=== PATIENT | male | born 1945 | race American Indian/Alaskan Native ===

== ENCOUNTER 2016-12-24 03:29 | Inpatient (IN) | payer MEDICARE, OTHER ==
[2016-12-24 03:30] VITALS: BMI 23.8
--- NOTE | 2016-12-24 03:31 | C.PDOC ---
History Of Present Illness Patient presents to the ER with a complaint of SOB worsening since Friday. Patient reports having mild chest pain yesterday that resolved itself and notes he quit smoking in October. Patient is speaking in complete sentences; denies fever , chills, nausea, or vomiting. Time Seen by Provider: 12/24/16 03:31 Chief Complaint (Nursing): Shortness Of Breath History Per: Patient History/Exam Limitations: no limitations Onset/Duration Of Symptoms: Days Current Symptoms Are (Timing): Still Present Initiating Event: Other (Not known) Current Respiratory Medications: None Severity: Moderate Pain Scale Rating Of: 4 Associated Symptoms: denies: Fever, Chills Recent travel outside of the [place]: No Past Medical History Reviewed: Historical Data, Nursing Documentation, Vital Signs Vital Signs: Last Vital Signs Temp 99.5 F 12/24/16 03:38 Pulse 96 H 12/24/16 04:40 Resp 20 12/24/16 04:40 BP 95/62 L 12/24/16 04:40 Pulse Ox 100 12/24/16 04:40 - Medical History PMH: Asthma (as per pt), COPD, Diabetes, HTN, Hypercholesterolemia, Hyperlipidemia Surgical History: Cholecystectomy, Hernia Repair - [facility] Procedures ASSISTANCE WITH RESPIRATORY VENTILATION, 24-96 HRS, CPAP (11/07/16) DRAINAGE OF RIGHT PLEURAL CAVITY, PERCUTANEOUS APPROACH (11/07/16) Family History: States: No Known Family Hx - Social History Hx Alcohol Use: No Hx Substance Use: No - Immunization History Hx Influenza Vaccination: Yes Review Of Systems Constitutional: Negative for: Fever, Chills Cardiovascular: Negative for: Chest Pain Respiratory: Positive for: Shortness of Breath Gastrointestinal: Negative for: Nausea, Vomiting Physical Exam - Physical Exam Appears: Non-toxic Skin: Warm, Dry Oral Mucosa: Moist Chest: Symmetrical, No Tenderness Cardiovascular: Rhythm Regular, No Murmur Respiratory: Decreased Breath Sounds, No Rales, Rhonchi (Diffuse), No Wheezing Gastrointestinal/Abdominal: Soft, No Tenderness Neurological/Psych: Oriented x3 ED Course And Treatment - Laboratory Results Result Diagrams: 12/24/16 03:50 12/24/16 03:50 ECG: Interpreted By Me, Viewed By Me ECG Rhythm: Sinus Rhythm (91), Nonspecific Changes O2 Sat by Pulse Oximetry: 96 Pulse Ox Interpretation: Normal - Radiology CXR: Interpreted by Me, Viewed By Me CXR Interpretation: Yes: Other (fibrotic changes, no effusion). No: Infiltrates , Fracture, Pnemothorax Progress Note: EKG, blood work, and urinalysis ordered. Ecotrin, solumedrol, and nebulizer treatment administered. Disposition Discussed With DrLena: Scottie Perrin Comment: accepted the pt on his service and took over the care at 6:10AM Counseled Patient/Family Regarding: Studies Performed, Diagnosis - Disposition Disposition: HOSPITALIZED Disposition Time: 03:31 Condition: FAIR Forms: [email or web address] (Tajik) - POA Present On Arrival: Poor Glycemic Control - Clinical Impression Clinical Impression: Dyspnea, COPD (chronic obstructive pulmonary disease), CHF (congestive heart failure) - Scribe Statement The provider has reviewed the documentation as recorded by the Scribe Chandler Juarez All medical record entries made by the Scribe were at my direction and personally dictated by me. I have reviewed the chart and agree that the record accurately reflects my personal performance of the history, physical exam, medical decision making, and the department course for this patient. I have also personally directed, reviewed, and agree with the discharge instructions and disposition. Decision To Admit - Pt Status Changed To: Hospital Disposition Of: Inpatient - Admit Certification Admit to Inpatient:: After my assessment, the patient will require hospitalization for at least two midnights. This is because of the severity of symptoms shown, intensity of services needed, and/or the medical risk in this patient being treated as an outpatient. - InPatient: Physician Admission Certification: I certify that this patient requires 2 or more midnights of care for the following reason:: After my assessment, the patient will require hospitalization for at least two midnights. This is because of the severity of symptoms shown, intensity of services needed, and/or the medical risk in this patient being treated as an outpatient. - . Bed Request Type: Telemetry Admitting Physician: Scottie Perrin Patient Diagnosis: Dyspnea, COPD (chronic obstructive pulmonary disease), CHF (congestive heart failure)
[2016-12-24] MEDS ORDERED: Aspirin 325 mg EC Tablets PO STA (03:36)
[2016-12-24] MEDS: Albuterol-Ipratrop 3 mg / 0.5 (3 ml) UD IH SCH ×3 (03:46→04:21)
[2016-12-24] MEDS ORDERED: Albuterol-Ipratrop 3 mg / 0.5 (3 ml) UD ONE (03:49)
[2016-12-24 03:55] LABS: BASO % 0.2 % (0.0-2.0); HEMATOCRIT 40.9 % (35.0-51.0); LYMPH # 0.8 K/uL (1.0-4.3); LYMPH % 8.4 % (20.0-40.0); MEAN CELL VOLUME 92.3 fL (80.0-94.0); MEAN CORPUSCULAR HEMOGLOBIN 30.7 pg (27.0-31.0); MEAN CORPUSCULAR HGB CONC 33.3 g/dL (33.0-37.0); MEAN PLATELET VOLUME 7.9 fL (7.2-11.7); MONO # 2.1 K/uL (0.0-0.8); MONO % 22.5 % (0.0-10.0); PLATELET COUNT 195 K/uL (130-400); RED CELL DISTRIBUTION WIDTH 14.8 % (11.5-14.5); WHITE BLOOD COUNT 9.2 K/uL (4.8-10.8)
[2016-12-24 03:56] LABS: CHLORIDE 94 mmol/L (98-107); POTASSIUM 4.3 mmol/L (3.6-5.2); SODIUM 136 mmol/L (132-148)
[2016-12-24 03:58] LABS: AST/SGOT 39 U/L (17-59); BILIRUBIN,TOTAL 1.3 mg/dL (0.2-1.3); CARBON DIOXIDE 28 mmol/L (22-30); GFR AFRICAN-AMERICAN > 60; TOTAL PROTEIN 7.4 g/dL (6.3-8.3)
[2016-12-24 03:59] LABS: ALKALINE PHOSPHATASE 88 U/L (38-126); ALT/SGPT 29 U/L (21-72); BLOOD UREA NITROGEN 13 mg/dL (9-20); CALCIUM 9.1 mg/dl (8.6-10.4); GLUCOSE,RANDOM 140 mg/dL (75-110)
[2016-12-24 04:02] LABS: ABG ALLEN TEST POS; DRAW SITE L RAD
[2016-12-24 04:56] LABS: NEUTROPHIL 50 % (50-75); TOTAL CELLS COUNTED 100
[2016-12-24] MEDS ORDERED: Piperacillin/Tazobact 3.375 gm 100 ML IVPB STA (05:23)
[2016-12-24 05:42] LABS: RBC URINE < 1 /hpf (0-3); URINE BILIRUBIN NEGATIVE (NEGATIVE); URINE BLOOD NEGATIVE (NEGATIVE); URINE COLOR Yellow (YELLOW); URINE GLUCOSE (UA) NORMAL (Normal); URINE KETONE NEGATIVE (NEGATIVE); URINE LEUKOCYTE ESTERASE NEG Leu/uL (Negative); URINE PROTEIN NEGATIVE (NEGATIVE); WBC URINE 1 /hpf (0-5)
--- NOTE | 2016-12-24 08:38 | CP.PCM.HP ---
<José Luis Mae - Last Filed: 12/24/16 09:17> History of Present Illness - History of Present Illness History of Present Illness: cc: "short of breath" HPI: Patient is a 71 year old male with PMHx of hypertension, NIDDM, hyperlipidemia, severe pulmonary hypertension, right sided heart failure, hx of pericardial effusion, hx of pleural effusions, CML, COPD, presenting to the hospital complaining of shortness of breath. Patient reports that he started feeling short of breath on evening. He said he was tossing and turning because he was unable to get comfortable due to the shortness of breath. He states that the dyspnea got progressively worse until yesterday, when he came in. He says that at baseline, he is unable to lay down flat and unable to walk more than 2 blocks without get short of breath. He says he has had a productive cough with sputum of various colors, for the past 1.5 weeks. He denies any fevers, chills, chest pain, palpitations. Patient was recently admitted to [facility] on 11/07/16 for dyspnea, secondary to COPD vs CHF exacerbation. PMD: Dr. Calix PMHx: As stated above PSHx: Inguinal hernia repair, cholecystectomy, thoracentesis (11/12/16) Allergies: Shellfish Fam hx: Father and 2 brothers had strokes Social hx: quit smoking on 11/07/16, previously smoked 1ppd for about 40 years. Quit drinking about 15 years ago, drank about 2 pints per day for over 35-40 years. Denies any illicit drug use. Worked previously at a [employer]. Lives alone. Has a brother and nieces/nephews that live near by. No advance directive Meds- Please see Assessment and Plan Present on Admission - Present on Admission Any Indicators Present on Admission: No Review of Systems - Constitutional Constitutional: absent: Anorexia, Chills, Daytime Sleepiness, Weakness - EENT Eyes: absent: Change in Vision Nose/Mouth/Throat: absent: Nasal Congestion, Nasal Discharge - Cardiovascular Cardiovascular: absent: Chest Pain, Irregular Heart Rhythm, Leg Edema, Palpitations, Pedal Edema - Respiratory Respiratory: Cough, Dyspnea, Dyspnea on Exertion, Change in Mucous Color. absent: Hemoptysis, Wheezing - Gastrointestinal Gastrointestinal: absent: Abdominal Pain, Constipation, Diarrhea, Heartburn, Vomiting - Genitourinary Genitourinary: absent: Difficulty Urinating, Dysuria - Musculoskeletal Musculoskeletal: absent: Back Pain, Myalgias, Numbness - Integumentary Integumentary: absent: Skin Ulcer, Sores, Striae, Wounds, Jaundice - Neurological Neurological: absent: Abnormal Movements, Tingling, Tremor, Weakness - Psychiatric Psychiatric: absent: Anxiety, Panic Attacks, Suicidal Ideation - Endocrine Endocrine: absent: Fatigue, Palpitations Past Patient History - Infectious Disease Hx of Infectious Diseases: None - Past Social History Smoking Status: Former Smoker Chewing Tobacco Use: No Cigar Use: No Alcohol: Other (former heavy alcohol use) Drugs: Denies Home Situation {Lives}: Alone - CARDIAC Hx Hypercholesterolemia: Yes Hx Hypertension: Yes - PULMONARY Hx Asthma: Yes (as per pt) Hx Chronic Obstructive Pulmonary Disease (COPD): Yes - NEUROLOGICAL Hx Neurological Disorder: No - HEENT Hx HEENT Problems: No - RENAL Hx Chronic Kidney Disease: No - ENDOCRINE/METABOLIC Hx Endocrine Disorders: Yes Hx Diabetes Mellitus Type 2: Yes - HEMATOLOGICAL/ONCOLOGICAL Hx Blood Disorders: Yes Hx Leukemia: Yes - MUSCULOSKELETAL/RHEUMATOLOGICAL Hx Falls: No - PSYCHIATRIC Hx Substance Use: No - SURGICAL HISTORY Hx Cholecystectomy: Yes - ANESTHESIA Hx Anesthesia: Yes Hx Anesthesia Reactions: No Meds Allergies/Adverse Reactions: Allergies Allergy/AdvReac Type Severity Reaction Status Date / Time No Known Allergies Allergy Verified 12/24/16 03:43 Physical Exam - Constitutional Appears: Non-toxic, No Acute Distress - Head Exam Head Exam: ATRAUMATIC, NORMAL INSPECTION, NORMOCEPHALIC - Eye Exam Pupil Exam: NORMAL ACCOMODATION, PERRL - ENT Exam ENT Exam: Mucous Membranes Moist - Respiratory Exam Respiratory Exam: Decreased Breath Sounds, Rales (bibasilar). absent: Rhonchi, Wheezes - Cardiovascular Exam Cardiovascular Exam: REGULAR RHYTHM, +S1, +S2 - GI/Abdominal Exam GI & Abdominal Exam: Normal Bowel Sounds, Soft. absent: Distended, Firm, Hernia , Hyperactive Bowel Sounds, Tenderness - Extremities Exam Extremities exam: Positive for: normal capillary refill, pedal pulses present - Neurological Exam Neurological exam: Alert, Oriented x3 - Psychiatric Exam Psychiatric exam: Normal Affect, Normal Mood - Skin Skin Exam: Dry, Intact, Normal Color, Warm Results - Vital Signs Recent Vital Signs: Last Vital Signs Temp 98.3 F 12/24/16 07:00 Pulse 88 12/24/16 07:05 Resp 20 12/24/16 07:00 BP 130/65 12/24/16 07:00 Pulse Ox 91 L 12/24/16 07:00 - Labs Result Diagrams: 12/24/16 03:50 12/24/16 03:50 Assessment & Plan (1) Dyspnea Status: Acute Comment: Likely secondary to severe pulmonary hypertension vs COPD/ Bronchiectasos exacerbation vs Right sided heart failure vs pneumonia. CXR- 12/24- Biapical pleural thickening with upper lobe granulomatous changes. Prominent diffuse increased interstitial lung markings bilaterally. Prominent consolidative changes in the mid to lower lung zones bilateral with reticulation at the level of diaphragms. Suggestion of trace bilateral pleural effusions. Right hilar prominence. f/u CT Chest Abdomen Pelvis with IV and PO Contrast. - Despite shellfish allergy, patient reported tolerating CT Angio from 10/28/16 with no problem. - If CT reveals pneumonia, will add antibiotics for HCAP. Consult Cardio- Dr. Oneill. Consult Pulm- Dr. Castillo. Lasix 40mg IVP Daily. Duoneb Q6h PRN for dyspnea/wheezing. Spiriva 18mcg INH Q24h. Singulair 10mg PO qHS. Advair 250/50 1 puff INH Q12h (2) History of diastolic dysfunction Status: Acute Comment: Consult Cardio- Dr. Oneill. ProBNP was 1570 on 11/07/16- currently 1280. Lasix 40mg IVP Daily. Cozaar 50mg PO Daily (3) Pericardial effusion Status: Acute Comment: Consult Cardio- Dr. Oneill. Echo from 11/07/16- LVEF 74%, LV systolic function normal, RV mild to mdoerately dilated. Grade I abnormal relaxation pattern. Mild to moderate tricuspid regurgitation. Severe Pulmonary hpyertension. Small- moderate circumferential pericardial effusion. No evidence of cardiac tamponade. (4) Pleural effusion Status: Acute Comment: CXR- 12/24/16- Biapical pleural thickening with upper lobe granulomatous changes. Prominent diffuse increased interstitial lung markings bilaterally. Prominent consolidative changes in the mid to lower lung zones bilateral with reticulation at the level of diaphragms. Suggestion of trace bilateral pleural effusions. Right hilar prominence. f/u CT Chest, Abdomen, Pelvis w IV and PO Contrast today. Pending cytology from thoracentesis on 11/12/16 (5) CML (chronic myelocytic leukemia) Status: Chronic Comment: consult [facility]- Dr. Navarro. Was previously on Dusatinib per documentation but was held due to history of pleural effusions (6) Diabetes Status: Chronic Comment: Hgb A1C on 11/07/16- 6.3. Continue Glimepiride 1mg PO Daily. RISS ACHS. Accucheck ACHS. Heart Healthy, Mod CHO diet (7) HTN (hypertension) Status: Chronic Comment: Cozaar 50mg PO Daily. Cardizem 120mg PO Daily (8) Hyperlipidemia Status: Acute Comment: Crestor 5mg PO HS (9) Mass of upper lobe of right lung Status: Acute Comment: CT Chest from 11/11/16 shows right upper lobe nodule. f/u CT Chest Abdomen Pelvis w PO and IV Contrast. Patient will require followup CT Chest in October 2017 (10) Prophylactic measure Status: Acute Comment: DVT Risk score of 5- ++2 due to age, +2 due to hx of CML< +1 due to COPD. Lovenox 40mg SC Daily. Protonix 40mg PO Daily <Espinoza Tatum - Last Filed: 12/24/16 22:08> Results - Vital Signs Recent Vital Signs: Last Vital Signs Temp 97.6 F 12/24/16 15:06 Pulse 70 12/24/16 15:06 Resp 20 12/24/16 15:06 BP 125/52 L 12/24/16 15:06 Pulse Ox 98 12/24/16 15:06 - Labs Result Diagrams: 12/24/16 03:50 12/24/16 03:50 Labs: Laboratory Results - last 24 hr 12/24/16 12/24/16 12/24/16 11:33 15:59 21:29 POC Glucose (mg/dL) 312 H 153 H 132 H Attending/Attestation - Attestation I have personally seen and examined this patient.: Yes I have fully participated in the care of the patient.: Yes I have reviewed all pertinent clinical information: Yes Notes (Text): 12/24/16 22:07 Patient was seen and examined shortly after resident on 12/24/16. History, Exam, Assessment and Plan were thoroughly gone over with the resident. Espinoza Tatum D.O.
--- NOTE | 2016-12-24 08:42 | RAD ---
PROCEDURE: CHEST RADIOGRAPH, 1 VIEW HISTORY: Shortness of breath COMPARISON: 11/07/2016 FINDINGS: LUNGS: Biapical pleural thickening with upper lobe granulomatous changes. Prominent diffuse increased interstitial lung markings bilaterally. Prominent consolidative changes in the mid to lower lung zones bilaterally with reticulation at the level of the diaphragms. Suggestion of trace bilateral pleural effusions. Right hilar prominence. PLEURA: As above. CARDIOVASCULAR: Mild cardiomegaly. OSSEOUS STRUCTURES: No significant abnormalities. VISUALIZED UPPER ABDOMEN: Normal. OTHER FINDINGS: None. IMPRESSION: Biapical pleural thickening with upper lobe granulomatous changes. Prominent diffuse increased interstitial lung markings bilaterally. Prominent consolidative changes in the mid to lower lung zones bilaterally with reticulation at the level of the diaphragms. Suggestion of trace bilateral pleural effusions. Right hilar prominence.
[2016-12-24] MEDS ORDERED: Iohexol 240 (50 ml) PO ONE (09:30)
[2016-12-24] MEDS: Enoxaparin 40 mg Syringe SC SCH (10:21)
[2016-12-24] MEDS: Pantoprazole 40 mg EC Tab PO SCH (10:21)
[2016-12-24] MEDS: diltiaZEM 120 mg/24 Hours CD Cap PO SCH (10:22)
[2016-12-24] MEDS ORDERED: Iodixanol 320 MG/ML 100 ML BOTTLE IV ONE (11:03)
[2016-12-24] MEDS: Albuterol-Ipratrop 3 mg / 0.5 (3 ml) UD INH PRN (11:39)
[2016-12-24] MEDS: (Novolog) Insulin Aspart, Recombinant 100 u/ml 10 ml vial SC SCH ×3 (13:36→22:00)
--- NOTE | 2016-12-24 16:34 | CT ---
CT chest, abdomen, and pelvis with IV contrast Indication: History CML, Currently with Abdominal Pain RUQ/RLQ Technique: Contiguous axial images of the chest, abdomen, and pelvis. Coronal and Sagittal reformats generated and reviewed. This CT exam was performed using 1 or more of the following dose reduction techniques: Automated exposure control, adjustment of the MAA and/or kV according to patient size, and/or use of iterative reconstruction technique. Oral contrast was administered. 100 mL Visipaque. Radiation dose: Total exam DLP = 483.38 MGy-cm. Comparison: CTA chest performed 11/11/16 Findings: Visualized portions of the inferior thyroid gland appear unremarkable. The mediastinal and hilar vascular structures appear within normal limits. The heart appears within normal limits of size. Small pericardial effusion. 13 mm pretracheal lymph node, nonspecific. Extensive bilateral lower lobe, right middle lobe, and lingular cylindrical bronchiectasis . Small right greater than left pleural effusions. Scattered tree-in-bud like opacities. 3 mm left lower lobe pulmonary nodule (series 4, image 110). Stable 3 mm right upper lobe pulmonary nodule. Hypoattenuation of the liver compatible with hepatic steatosis. Bilateral adrenal gland hypertrophy. Cholecystectomy. The spleen, kidneys, and pancreas appear unremarkable. The stomach is nondistended. The bowel loops appear within normal limits of caliber without evidence of intestinal obstruction. There is no definite free air. Moderate constipation. Diverticulosis without CT evidence of acute diverticulitis. The prostate gland measures approximately 2.6 x 4.1 cm and contains coarse calcifications. Partially imaged right hydrocele. 15 mm low-density right testicular focus, possibly partially imaged hydrocele. The urinary bladder appears unremarkable. Bilateral sub cm inguinal adenopathy. Bilateral gynecomastia. No acute osseous abnormality is detected. Impression: Small pericardial effusion. Extensive bilateral lower lobe, right middle lobe, and lingular cylindrical bronchiectasis . Small right greater than left pleural effusions. Scattered tree-in-bud like opacities. 3 mm left lower lobe pulmonary nodule. Stable 3 mm right upper lobe pulmonary nodule. In the absence of risk factors for lung cancer, no specific imaging follow-up is required. If the patient is a smoker or has other risk factors, follow-up CT at 12 months is recommended to document stability. Hepatic steatosis. Bilateral adrenal gland hypertrophy. Cholecystectomy. Diverticulosis without CT evidence of acute diverticulitis. Moderate constipation. 13 mm pretracheal lymph node, nonspecific. Bilateral sub cm inguinal adenopathy. 15 mm low-density right testicular focus, possibly partially imaged hydrocele. Suggest further evaluation with testicular ultrasound if indicated. Bilateral gynecomastia.
--- NOTE | 2016-12-24 16:35 | CP.PCM.CON ---
History of Present Illness - History of Present Illness History of Present Illness: Reason for consult: COPD/consolidations/dyspnea The patient is a 71 year old male who presented to emergency department early this morning for progressively worsening shortness of breath and productive cough for the last 1.5 weeks. Patient seen and examined bedside. He was laying flat in bed comfortably. He reports that his shortness of breath has improved since admission. Still reports a productive cough with green sputum. Patient denied chest pain, palpitations, f/c, and n/v/d/c. PMhx: HTN, HLD, Pulm HTN, CML, COPD, NIDDM, Right sided heart failure, pericardial effusion, pleural effusions Surg Hx: Inguinal hernia repair, cholecystectomy, thoracentesis (11/12/16) Social Hx: 1ppd x 40 years (quit smoking in October 2016), history of ETOH use (2 pints/day x 35 years, quit 15 years ago), denied drug use Family HX: dad and two brothers had CVA Allergies: shellfis CXR (12/24/16): Biapical pleural thickening with upper lobe granulomatous changes. Trace bilateral pleural effusions. Prominent consolidative changes in mid to lower lung zones bilaterally. Right hilar prominence. Review of Systems - Review of Systems All systems: reviewed and no additional remarkable complaints except (Shortness of breath and cough) Past Patient History - Infectious Disease Hx of Infectious Diseases: None - Past Medical History & Family History Past Medical History?: Yes - Past Social History Smoking Status: Light Smoker < 10 Cigarettes Daily - CARDIAC Hx Cardiac Disorders: Yes Hx Hypercholesterolemia: Yes Hx Hypertension: Yes - PULMONARY Hx Respiratory Disorders: Yes Hx Asthma: Yes (as per pt) Hx Chronic Obstructive Pulmonary Disease (COPD): Yes - NEUROLOGICAL Hx Neurological Disorder: No - HEENT Hx HEENT Problems: No - RENAL Hx Chronic Kidney Disease: No - ENDOCRINE/METABOLIC Hx Endocrine Disorders: Yes Hx Diabetes Mellitus Type 2: Yes - HEMATOLOGICAL/ONCOLOGICAL Hx Blood Disorders: Yes Hx Leukemia: Yes - INTEGUMENTARY Hx Dermatological Problems: No - MUSCULOSKELETAL/RHEUMATOLOGICAL Hx Musculoskeletal Disorders: No Hx Falls: No - GASTROINTESTINAL Hx Gastrointestinal Disorders: No - GENITOURINARY/GYNECOLOGICAL Hx Genitourinary Disorders: No - PSYCHIATRIC Hx Psychophysiologic Disorder: No Hx Substance Use: No - SURGICAL HISTORY Hx Surgeries: Yes Hx Cholecystectomy: Yes - ANESTHESIA Hx Anesthesia: Yes Hx Anesthesia Reactions: No Meds Allergies/Adverse Reactions: Allergies Allergy/AdvReac Type Severity Reaction Status Date / Time No Known Allergies Allergy Verified 12/24/16 03:43 - Medications Medications: Current Medications Albuterol/Ipratropium (Duoneb 3 Mg/0.5 Mg (3 Ml) Ud) 3 ml INH RQ6 PRN PRN Reason: Shortness of Breath Last Admin: 12/24/16 11:39 Dose: 3 ml Diltiazem HCl (Cardizem Cd) 120 mg PO DAILY [facility] Last Admin: 12/24/16 10:22 Dose: 120 mg Enoxaparin Sodium (Lovenox) 40 mg SC DAILY [facility] Last Admin: 12/24/16 10:21 Dose: 40 mg Furosemide (Lasix) 40 mg IVP DAILY [facility] Last Admin: 12/24/16 10:22 Dose: 40 mg Glimepiride (Amaryl) 1 mg PO DAILY [facility] Last Admin: 12/24/16 11:08 Dose: 1 mg Insulin Aspart (Novolog) 0 unit SC [facility] PRN Reason: Protocol Last Admin: 12/24/16 13:36 Dose: 4 unit Losartan Potassium (Cozaar) 50 mg PO DAILY [facility] Last Admin: 12/24/16 10:24 Dose: 50 mg Montelukast Sodium (Singulair) 10 mg PO HS [facility] Pantoprazole Sodium (Protonix Ec Tab) 40 mg PO DAILY [facility] Last Admin: 12/24/16 10:21 Dose: 40 mg Rosuvastatin Calcium (Crestor) 5 mg PO HS [facility] Fluticasone/Salmeterol (Advair Diskus 250/50) 1 puff INH RQ12 [facility] Tiotropium [place] (Spiriva) 18 mcg INH RQ24 [facility] Physical Exam - Head Exam Head Exam: ATRAUMATIC, NORMOCEPHALIC - Eye Exam Eye Exam: Normal appearance - ENT Exam ENT Exam: Mucous Membranes Moist - Neck Exam Neck exam: Positive for: Normal Inspection - Respiratory Exam Respiratory Exam: Rales - Cardiovascular Exam Cardiovascular Exam: REGULAR RHYTHM - GI/Abdominal Exam GI & Abdominal Exam: Normal Bowel Sounds, Soft Results - Vital Signs Recent Vital Signs: Last Vital Signs Temp 98.1 F 12/24/16 07:00 Pulse 88 12/24/16 09:01 Resp 18 12/24/16 11:39 BP 152/71 H 12/24/16 10:22 Pulse Ox 97 08/08/17 11:39 - Labs Result Diagrams: 12/24/16 03:50 12/24/16 03:50 Labs: Laboratory Results - last 24 hr 12/24/16 11:33 POC Glucose (mg/dL) 312 H Assessment & Plan (1) COPD (chronic obstructive pulmonary disease) Status: Acute Comment: CAT scan of the chest consistent with extensive bronchiectasis. Start IV antibiotics. IV steroids and nebulizer treatment (2) CHF (congestive heart failure) Status: Acute (3) Pulmonary hypertension Status: Acute
--- NOTE | 2016-12-24 17:31 | CP.PCM.CON ---
<RiveraJhony - Last Filed: 12/24/16 17:19> History of Present Illness - History of Present Illness History of Present Illness: PGY3 on heme/onc Dr. Navarro service: 71 year old male with PMHx of hypertension, NIDDM, hyperlipidemia, severe pulmonary hypertension, right sided heart failure, hx of pericardial effusion, hx of pleural effusions, CML, COPD, presenting to the hospital complaining of shortness of breath. Patient reports that he started feeling short of breath on evening. Patient was recently admitted to [facility] on 11/07/16 for dyspnea, secondary to COPD vs CHF exacerbation. Patient was told to stop Dusatinib due to possible side effect of pericardial effusion. Patient did not take the medication since previous admission as instructed. Patient currently said his breathing is improved after treatments. PMD: Dr. Calix PMHx: As stated above PSHx: Inguinal hernia repair, cholecystectomy, thoracentesis (11/12/16) Allergies: Shellfish Fam hx: Father and 2 brothers had strokes Social hx: quit smoking on 11/07/16, previously smoked 1ppd for about 40 years. Quit drinking about 15 years ago, drank about 2 pints per day for over 35-40 years. Denies any illicit drug use. Worked previously at a [employer]. Lives alone. Has a brother and nieces/nephews that live near by. No advance directive Review of Systems - Constitutional Constitutional: Weakness - EENT Ears: absent: Decreased Hearing - Cardiovascular Cardiovascular: Dyspnea, Dyspnea on Exertion, Edema. absent: Chest Pain - Respiratory Respiratory: Dyspnea, Wheezing. absent: Cough - Gastrointestinal Gastrointestinal: absent: Abdominal Pain - Musculoskeletal Musculoskeletal: absent: Tingling - Integumentary Integumentary: absent: Dry Skin - Neurological Neurological: absent: Abnormal Movements Past Patient History - Infectious Disease Hx of Infectious Diseases: None - Past Medical History & Family History Past Medical History?: Yes - Past Social History Smoking Status: Light Smoker < 10 Cigarettes Daily - CARDIAC Hx Cardiac Disorders: Yes Hx Hypercholesterolemia: Yes Hx Hypertension: Yes - PULMONARY Hx Respiratory Disorders: Yes Hx Asthma: Yes (as per pt) Hx Chronic Obstructive Pulmonary Disease (COPD): Yes - NEUROLOGICAL Hx Neurological Disorder: No - HEENT Hx HEENT Problems: No - RENAL Hx Chronic Kidney Disease: No - ENDOCRINE/METABOLIC Hx Endocrine Disorders: Yes Hx Diabetes Mellitus Type 2: Yes - HEMATOLOGICAL/ONCOLOGICAL Hx Blood Disorders: Yes Hx Leukemia: Yes - INTEGUMENTARY Hx Dermatological Problems: No - MUSCULOSKELETAL/RHEUMATOLOGICAL Hx Musculoskeletal Disorders: No Hx Falls: No - GASTROINTESTINAL Hx Gastrointestinal Disorders: No - GENITOURINARY/GYNECOLOGICAL Hx Genitourinary Disorders: No - PSYCHIATRIC Hx Psychophysiologic Disorder: No Hx Substance Use: No - SURGICAL HISTORY Hx Surgeries: Yes Hx Cholecystectomy: Yes - ANESTHESIA Hx Anesthesia: Yes Hx Anesthesia Reactions: No Meds Allergies/Adverse Reactions: Allergies Allergy/AdvReac Type Severity Reaction Status Date / Time No Known Allergies Allergy Verified 12/24/16 03:43 - Medications Medications: Current Medications Albuterol/Ipratropium (Duoneb 3 Mg/0.5 Mg (3 Ml) Ud) 3 ml INH RQ6 PRN PRN Reason: Shortness of Breath Last Admin: 12/24/16 11:39 Dose: 3 ml Budesonide (Pulmicort Respules) 0.5 mg INH RQ12 [facility] Diltiazem HCl (Cardizem Cd) 120 mg PO DAILY [facility] Last Admin: 12/24/16 10:22 Dose: 120 mg Enoxaparin Sodium (Lovenox) 40 mg SC DAILY [facility] Last Admin: 12/24/16 10:21 Dose: 40 mg Furosemide (Lasix) 40 mg IVP DAILY [facility] Last Admin: 12/24/16 10:22 Dose: 40 mg Glimepiride (Amaryl) 1 mg PO DAILY [facility] Last Admin: 12/24/16 11:08 Dose: 1 mg Cefepime HCl (Maxipime Iv 1 Gm Premix) 1 gm in 50 mls @ 100 mls/hr IVPB Q12H [facility] Insulin Aspart (Novolog) 0 unit SC ACHS [facility] PRN Reason: Protocol Last Admin: 12/24/16 13:36 Dose: 4 unit Losartan Potassium (Cozaar) 50 mg PO DAILY [facility] Last Admin: 12/24/16 10:24 Dose: 50 mg Methylprednisolone (Solu-Medrol) 40 mg IV Q12 [facility] Montelukast Sodium (Singulair) 10 mg PO HS [facility] Pantoprazole Sodium (Protonix Ec Tab) 40 mg PO DAILY [facility] Last Admin: 12/24/16 10:21 Dose: 40 mg Rosuvastatin Calcium (Crestor) 5 mg PO HS [facility] Tiotropium [place] (Spiriva) 18 mcg INH RQ24 [facility] Physical Exam - Constitutional Appears: Non-toxic, No Acute Distress, Chronically Ill - Head Exam Head Exam: ATRAUMATIC - Eye Exam Eye Exam: Normal appearance - ENT Exam ENT Exam: Mucous Membranes Moist - Respiratory Exam Respiratory Exam: Decreased Breath Sounds, Rales, Rhonchi, NORMAL BREATHING PATTERN. absent: Wheezes - Cardiovascular Exam Cardiovascular Exam: REGULAR RHYTHM, +S1, +S2. absent: Gallop, Rubs - GI/Abdominal Exam GI & Abdominal Exam: Normal Bowel Sounds, Soft. absent: Tenderness - Extremities Exam Extremities exam: Negative for: pedal edema - Neurological Exam Neurological exam: Alert, Oriented x3 - Psychiatric Exam Psychiatric exam: Normal Mood - Skin Skin Exam: Intact Results - Vital Signs Recent Vital Signs: Last Vital Signs Temp 98.1 F 12/24/16 07:00 Pulse 88 12/24/16 09:01 Resp 18 12/24/16 11:39 BP 152/71 H 12/24/16 10:22 Pulse Ox 97 12/24/16 11:39 - Labs Result Diagrams: 12/24/16 03:50 12/24/16 03:50 Labs: Laboratory Results - last 24 hr 12/24/16 12/24/16 11:33 15:59 POC Glucose (mg/dL) 312 H 153 H Assessment & Plan - Assessment and Plan (Free Text) Assessment: CML Hold Dusatinib. Outpatient follow up. Anemia Mild. No intervention at this point. SOB Management as per Dr. Castillo. <Aj Navarro - Last Filed: 12/24/16 19:17> Meds - Medications Medications: Current Medications Albuterol/Ipratropium (Duoneb 3 Mg/0.5 Mg (3 Ml) Ud) 3 ml INH RQ6 PRN PRN Reason: Shortness of Breath Last Admin: 12/24/16 11:39 Dose: 3 ml Budesonide (Pulmicort Respules) 0.5 mg INH RQ12 [facility] Diltiazem HCl (Cardizem Cd) 120 mg PO DAILY [facility] Last Admin: 12/24/16 10:22 Dose: 120 mg Enoxaparin Sodium (Lovenox) 40 mg SC DAILY [facility] Last Admin: 12/24/16 10:21 Dose: 40 mg Furosemide (Lasix) 40 mg IVP DAILY [facility] Last Admin: 12/24/16 10:22 Dose: 40 mg Glimepiride (Amaryl) 1 mg PO DAILY [facility] Last Admin: 12/24/16 11:08 Dose: 1 mg Cefepime HCl (Maxipime Iv 1 Gm Premix) 1 gm in 50 mls @ 100 mls/hr IVPB Q12H [facility] Insulin Aspart (Novolog) 0 unit SC ACHS [facility] PRN Reason: Protocol Last Admin: 12/24/16 13:36 Dose: 4 unit Losartan Potassium (Cozaar) 50 mg PO DAILY [facility] Last Admin: 12/24/16 10:24 Dose: 50 mg Methylprednisolone (Solu-Medrol) 40 mg IV Q12 [facility] Montelukast Sodium (Singulair) 10 mg PO HS [facility] Pantoprazole Sodium (Protonix Ec Tab) 40 mg PO DAILY [facility] Last Admin: 12/24/16 10:21 Dose: 40 mg Rosuvastatin Calcium (Crestor) 5 mg PO HS [facility] Tiotropium [place] (Spiriva) 18 mcg INH RQ24 [facility] Results - Vital Signs Recent Vital Signs: Last Vital Signs Temp 97.6 F 12/24/16 15:06 Pulse 70 12/24/16 15:06 Resp 20 12/24/16 15:06 BP 125/52 L 12/24/16 15:06 Pulse Ox 98 12/24/16 15:06 - Labs Result Diagrams: 12/24/16 03:50 12/24/16 03:50 Labs: Laboratory Results - last 24 hr 12/24/16 12/24/16 11:33 15:59 POC Glucose (mg/dL) 312 H 153 H Assessment & Plan - Assessment and Plan (Free Text) Assessment: Pt seend and examined, agree with residents consult. 71 year old male with a history of CML dx 03/2015 on dasatinib until 10/2016 after admission with pleural and pericardial effusion felt to be secondary to dasatinib. The patient has not been restarted since his admission and presents with shortness of breath. Will cont. to hold dasatinib therapy for now and consider resuming as outpatient. Mild anemia. Thank you for this interesting consult.
[2016-12-24] MEDS: Cefepime IV 1 gm in Dextrose 1 GM/50 ML BAG IVPB SCH (19:26)
--- NOTE | 2016-12-24 19:56 | CP.PCM.CON ---
History of Present Illness - History of Present Illness History of Present Illness: I was asked to see the patient by the primary team. Patient is a 71 year old male with a history of HTN, CML severe pulmonary HTN with right ventricular dysfunction who presents with dyspnea. The patient states dyspnea began about 4 days ago, and is described as occurring at rest. The patient was noted to have dry non productive cough. The patient felt his symptoms were progressive and therefore he presented to the hospital for further management. Review of Systems - Constitutional Constitutional: absent: As Per HPI, Anorexia, Chills, Daytime Sleepiness, Excessive Sweating, Fatigue, Fever, Frequent Falls, Headache, Increased Appetite , Lethargy, Malaise, Night Sweats, Snoring, Sleep Apnea, Weight Gain, Weight Loss, Weakness, Other - EENT Eyes: absent: As Per HPI, Blind Spots, Blurred Vision, Change in Vision, Decreased Night Vision, Diplopia, Discharge, Dry Eye, Exophthalmos, Floaters, Irritation, Itchy Eyes, Loss of Peripheral Vision, Pain, Photophobia, Requires Corrective Lenses, Sees Flashes, Spots in Vision, Tunnel Vision, Other Visual Disturbances, Loss of Vision, Other Ears: absent: As Per HPI, Decreased Hearing, Ear Discharge, Ear Pain, Tinnitus, Abnormal Hearing, Disequilibrium, Dizziness, Other Nose/Mouth/Throat: absent: As Per HPI, Epistaxis, Nasal Congestion, Nasal Discharge, Nasal Obstruction, Nasal Trauma, Nose Pain, Post Nasal Drip, Sinus Pain, Sinus Pressure, Bleeding Gums, Change in Voice, Dental Pain, Dry Mouth, Dysphagia, Halitosis, Hoarsness, Lip Swelling, Mouth Lesions, Mouth Pain, Odynophagia, Sore Throat, Throat Swelling, Tongue Swelling, Facial Pain, Neck Pain, Neck Mass, Other - Cardiovascular Cardiovascular: absent: As Per HPI, Acrocyanosis, Chest Pain, Chest Pain at Rest , Chest Pain with Activity, Claudication, Diaphoresis, Dyspnea, Dyspnea on Exertion, Edema, Irregular Heart Rhythm, Pain Radiating to Arm/Neck/Jaw, Leg Edema, Leg Ulcers, Lightheadedness, Orthopnea, Palpitations, Paroxysmal Nocturnal Dyspnea, Pedal Edema, Radiating Pain, Rapid Heart Rate, Slow Heart Rate, Syncope, Other - Respiratory Respiratory: Cough, Dyspnea - Gastrointestinal Gastrointestinal: absent: As Per HPI, Abdominal Pain, Belching, Bloating, Change in Bowel Habits, Change in Stool Character, Coffee Ground Emesis, Constipation, Cramping, Diarrhea, Dyspepsia, Dysphagia, Early Satiety, Excessive Flatus, Fecal Incontinence, Heartburn, Hematemesis, Hematochezia, Loose Stools, Melena, Nausea, Odynophagia, Temesmus, Vomiting, Other - Musculoskeletal Musculoskeletal: absent: As Per HPI, Abnormal Gait, Arthralgias, Atrophy, Back Pain, Deformity, Joint Swelling, Limited Range of Motion, Loss of Height, Muscle Cramps, Muscle Weakness, Myalgias, Neck Pain, Numbness, Radiating Pain into Limb, Stiffness, Tingling, Other - Neurological Neurological: absent: As Per HPI, Abnormal Gait, Abnormal Hearing, Abnormal Movements, Abnormal Speech, Behavioral Changes, Burning Sensations, Confusion, Convulsions, Disequilibrium, Dizziness, Numbness, Focal Weakness, Frequent Falls , Headaches, Lack of Coordination, Loss of Vision, Memory Loss, Paresthesias, Radicular Pain, Restless Legs, Sensory Deficit, Syncope, Tingling, Tremor, Vertigo, Weakness, Other Visual Disturbances, Other - Psychiatric Psychiatric: absent: As Per HPI, Abnormal Sleep Pattern, Anhedonia, Anxiety, Auditory Hallucinations, Behavioral Changes, Change in Appetite, Change in Libido, Confusion, Depression, Difficulty Concentrating, Hallucinations, Homicidal Ideation, Hopelessness, Irritability, Memory Loss, Mood Swings, Panic Attacks, Paranoia, Suicidal Ideation, Visual Hallucinations, Tactile Hallucinations, Other - Endocrine Endocrine: absent: As Per HPI, Change in Body Appearance, Change in Libido, Cold Intolorance, Deepening of Voice, Excessive Sweating, Fatigue, Flushing, Heat Intolorance, Increase in Ring/Shoe/Hat Size, Palpitations, Polydipsia, Polyphagia, Polyuria, Other - Hematologic/Lymphatic Hematologic: absent: As Per HPI, Easy Bleeding, Easy Bruising, Lymphadenopathy, Other Past Patient History - Infectious Disease Hx of Infectious Diseases: None - Past Medical History & Family History Past Medical History?: Yes - Past Social History Smoking Status: Light Smoker < 10 Cigarettes Daily - CARDIAC Hx Cardiac Disorders: Yes Hx Hypercholesterolemia: Yes Hx Hypertension: Yes - PULMONARY Hx Respiratory Disorders: Yes Hx Asthma: Yes (as per pt) Hx Chronic Obstructive Pulmonary Disease (COPD): Yes - NEUROLOGICAL Hx Neurological Disorder: No - HEENT Hx HEENT Problems: No - RENAL Hx Chronic Kidney Disease: No - ENDOCRINE/METABOLIC Hx Endocrine Disorders: Yes Hx Diabetes Mellitus Type 2: Yes - HEMATOLOGICAL/ONCOLOGICAL Hx Blood Disorders: Yes Hx Leukemia: Yes - INTEGUMENTARY Hx Dermatological Problems: No - MUSCULOSKELETAL/RHEUMATOLOGICAL Hx Musculoskeletal Disorders: No Hx Falls: No - GASTROINTESTINAL Hx Gastrointestinal Disorders: No - GENITOURINARY/GYNECOLOGICAL Hx Genitourinary Disorders: No - PSYCHIATRIC Hx Psychophysiologic Disorder: No Hx Substance Use: No - SURGICAL HISTORY Hx Surgeries: Yes Hx Cholecystectomy: Yes - ANESTHESIA Hx Anesthesia: Yes Hx Anesthesia Reactions: No Meds Allergies/Adverse Reactions: Allergies Allergy/AdvReac Type Severity Reaction Status Date / Time No Known Allergies Allergy Verified 12/24/16 03:43 - Medications Medications: Current Medications Albuterol/Ipratropium (Duoneb 3 Mg/0.5 Mg (3 Ml) Ud) 3 ml INH RQ6 PRN PRN Reason: Shortness of Breath Last Admin: 12/24/16 11:39 Dose: 3 ml Budesonide (Pulmicort Respules) 0.5 mg INH RQ12 [facility] Diltiazem HCl (Cardizem Cd) 120 mg PO DAILY [facility] Last Admin: 12/24/16 10:22 Dose: 120 mg Enoxaparin Sodium (Lovenox) 40 mg SC DAILY [facility] Last Admin: 12/24/16 10:21 Dose: 40 mg Furosemide (Lasix) 40 mg IVP DAILY [facility] Last Admin: 12/24/16 10:22 Dose: 40 mg Glimepiride (Amaryl) 1 mg PO DAILY [facility] Last Admin: 12/24/16 11:08 Dose: 1 mg Cefepime HCl (Maxipime Iv 1 Gm Premix) 1 gm in 50 mls @ 100 mls/hr IVPB Q12H [facility] Last Admin: 12/24/16 19:26 Dose: 100 mls/hr Insulin Aspart (Novolog) 0 unit SC ACHS [facility] PRN Reason: Protocol Last Admin: 12/24/16 19:26 Dose: 1 unit Losartan Potassium (Cozaar) 50 mg PO DAILY [facility] Last Admin: 12/24/16 10:24 Dose: 50 mg Methylprednisolone (Solu-Medrol) 40 mg IV Q12 [facility] Montelukast Sodium (Singulair) 10 mg PO HS [facility] Pantoprazole Sodium (Protonix Ec Tab) 40 mg PO DAILY [facility] Last Admin: 12/24/16 10:21 Dose: 40 mg Rosuvastatin Calcium (Crestor) 5 mg PO HS [facility] Tiotropium [place] (Spiriva) 18 mcg INH RQ24 [facility] Physical Exam - Constitutional Appears: Non-toxic - Head Exam Head Exam: NORMAL INSPECTION - Eye Exam Eye Exam: Normal appearance - ENT Exam ENT Exam: Mucous Membranes Moist - Neck Exam Neck exam: Positive for: Full Rom - Respiratory Exam Respiratory Exam: Decreased Breath Sounds Additional comments: dry crackles - Cardiovascular Exam Cardiovascular Exam: REGULAR RHYTHM - GI/Abdominal Exam GI & Abdominal Exam: Normal Bowel Sounds - Rectal Exam Rectal Exam: Deferred - Extremities Exam Extremities exam: Negative for: pedal edema - Back Exam Back exam: NORMAL INSPECTION - Neurological Exam Neurological exam: Alert, Oriented x3 - Psychiatric Exam Psychiatric exam: Normal Affect - Skin Skin Exam: Normal Color Results - Vital Signs Recent Vital Signs: Last Vital Signs Temp 97.6 F 12/24/16 15:06 Pulse 70 12/24/16 15:06 Resp 20 12/24/16 15:06 BP 125/52 L 12/24/16 15:06 Pulse Ox 98 12/24/16 15:06 - Labs Result Diagrams: 12/24/16 03:50 12/24/16 03:50 Labs: Laboratory Results - last 24 hr 12/24/16 12/24/16 11:33 15:59 POC Glucose (mg/dL) 312 H 153 H - EKG Data EKG Interpreted by: Myself Assessment & Plan (1) Pulmonary hypertension Assessment and Plan: patient has severe pulmonary hypertension from echocardiogram in October. His dyspnea is likely due to longstanding severe pulmonary hypertension. Status: Acute (2) Right heart failure due to pulmonary hypertension Assessment and Plan: LV systolic function is preserved. the patient is currently euvolemic. maintain medical therapy. Status: Acute
[2016-12-24] MEDS ORDERED: Fluticasone-Salmeterol 250-50mcg Diskus INH SCH (20:00)
[2016-12-24] MEDS: Budesonide 0.5 mg/2 ml Inhal Susp UD INH SCH (20:40)
[2016-12-24] MEDS: MethylPREDNISolone 40 mg Vial IV SCH (21:32)
[2016-12-25] MEDS: Albuterol-Ipratrop 3 mg / 0.5 (3 ml) UD INH PRN ×4 (03:10→19:36)
[2016-12-25] MEDS: Cefepime IV 1 gm in Dextrose 1 GM/50 ML BAG IVPB SCH ×2 (06:23→18:34)
[2016-12-25] MEDS: Tiotropium 18 mcg Cap For Inhalation INH SCH (07:30)
[2016-12-25] MEDS: Budesonide 0.5 mg/2 ml Inhal Susp UD INH SCH ×2 (07:30→19:36)
[2016-12-25 07:42] LABS: BASO % 0.2 % (0.0-2.0); HEMATOCRIT 38.5 % (35.0-51.0); LYMPH # 0.6 K/uL (1.0-4.3); LYMPH % 4.4 % (20.0-40.0); MEAN CELL VOLUME 91.7 fL (80.0-94.0); MEAN CORPUSCULAR HEMOGLOBIN 30.2 pg (27.0-31.0); MEAN PLATELET VOLUME 8.1 fL (7.2-11.7); MONO % 7.5 % (0.0-10.0); PLATELET COUNT 244 K/uL (130-400); RED CELL DISTRIBUTION WIDTH 14.7 % (11.5-14.5); WHITE BLOOD COUNT 13.7 K/uL (4.8-10.8)
[2016-12-25 07:45] LABS: CHLORIDE 93 mmol/L (98-107)
[2016-12-25 07:46] LABS: POTASSIUM 4.6 mmol/L (3.6-5.2); SODIUM 136 mmol/L (132-148)
[2016-12-25 07:48] LABS: ALKALINE PHOSPHATASE 83 U/L (38-126); AST/SGOT 24 U/L (17-59); BILIRUBIN,TOTAL 0.7 mg/dL (0.2-1.3); BLOOD UREA NITROGEN 19 mg/dL (9-20); CARBON DIOXIDE 29 mmol/L (22-30); GFR AFRICAN-AMERICAN > 60; GLUCOSE,RANDOM 171 mg/dL (75-110); TOTAL PROTEIN 6.8 g/dL (6.3-8.3)
[2016-12-25 07:49] LABS: ALT/SGPT 29 U/L (21-72); CALCIUM 9.2 mg/dl (8.6-10.4)
[2016-12-25] MEDS: (Novolog) Insulin Aspart, Recombinant 100 u/ml 10 ml vial SC SCH ×4 (08:14→22:57)
[2016-12-25 08:58] LABS: NEUTROPHIL 86 % (50-75); TOTAL CELLS COUNTED 100
[2016-12-25] MEDS: diltiaZEM 120 mg/24 Hours CD Cap PO SCH (10:29)
[2016-12-25] MEDS: Pantoprazole 40 mg EC Tab PO SCH (10:29)
[2016-12-25] MEDS: Enoxaparin 40 mg Syringe SC SCH (10:29)
[2016-12-25] MEDS: MethylPREDNISolone 40 mg Vial IV SCH ×2 (10:29→21:58)
--- NOTE | 2016-12-25 11:12 | CP.PCM.PN ---
Subjective - Date & Time of Evaluation Date of Evaluation: 12/25/16 Time of Evaluation: 11:12 - Subjective Subjective: MILD DYSPNEA, WHEEZING AND COUGH. NO CP, PALP Objective - Vital Signs/Intake and Output Vital Signs (last 24 hours): Temp Pulse Resp BP Pulse Ox 97.3 F L 79 18 103/48 L 100 12/25/16 07:00 12/25/16 08:55 12/25/16 07:00 12/25/16 10:31 12/25/16 07:00 - Medications Medications: Current Medications Albuterol/Ipratropium (Duoneb 3 Mg/0.5 Mg (3 Ml) Ud) 3 ml INH RQ6 PRN PRN Reason: Shortness of Breath Last Admin: 12/25/16 07:30 Dose: 3 ml Budesonide (Pulmicort Respules) 0.5 mg INH RQ12 [facility] Last Admin: 12/25/16 07:30 Dose: 0.5 mg Diltiazem HCl (Cardizem Cd) 120 mg PO DAILY [facility] Last Admin: 12/25/16 10:29 Dose: 120 mg Enoxaparin Sodium (Lovenox) 40 mg SC DAILY [facility] Last Admin: 12/25/16 10:29 Dose: 40 mg Furosemide (Lasix) 40 mg IVP DAILY [facility] Last Admin: 12/25/16 10:31 Dose: Not Given Glimepiride (Amaryl) 1 mg PO DAILY [facility] Last Admin: 12/25/16 10:29 Dose: 1 mg Cefepime HCl (Maxipime Iv 1 Gm Premix) 1 gm in 50 mls @ 100 mls/hr IVPB Q12H [facility] Last Admin: 12/25/16 06:23 Dose: 100 mls/hr Insulin Aspart (Novolog) 0 unit SC ACHS [facility] PRN Reason: Protocol Last Admin: 12/25/16 08:14 Dose: 1 unit Losartan Potassium (Cozaar) 50 mg PO DAILY [facility] Last Admin: 12/25/16 10:29 Dose: 50 mg Methylprednisolone (Solu-Medrol) 40 mg IV Q12 [facility] Last Admin: 12/25/16 10:29 Dose: 40 mg Montelukast Sodium (Singulair) 10 mg PO HS [facility] Last Admin: 12/24/16 21:31 Dose: 10 mg Pantoprazole Sodium (Protonix Ec Tab) 40 mg PO DAILY [facility] Last Admin: 12/25/16 10:29 Dose: 40 mg Rosuvastatin Calcium (Crestor) 5 mg PO HS [facility] Last Admin: 12/24/16 21:32 Dose: 5 mg Tiotropium [place] (Spiriva) 18 mcg INH RQ24 [facility] Last Admin: 12/25/16 07:30 Dose: 18 mcg - Labs Labs: 12/25/16 07:04 12/25/16 07:04 - Constitutional Appears: Well - Head Exam Head Exam: ATRAUMATIC, NORMAL INSPECTION, NORMOCEPHALIC - Eye Exam Eye Exam: EOMI, Normal appearance, PERRL. absent: Conjunctival injection, Nystagmus, Periorbital swelling, Periorbital tenderness, Scleral icterus Pupil Exam: NORMAL ACCOMODATION, PERRL - ENT Exam ENT Exam: Mucous Membranes Moist, Normal Exam. absent: Mucous Membranes Dry, Normal External Ear Exam, Normal Oropharynx, TM's Normal Bilaterally - Neck Exam Neck Exam: Full ROM, Normal Inspection - Respiratory Exam Respiratory Exam: Decreased Breath Sounds, Rhonchi, Wheezes. absent: Accessory Muscle Use, Chest Wall Tenderness, Clear to Ausculation Bilateral, Prolonged Expiratory Phase, Rales, Respiratory Distress, Stridor, NORMAL BREATHING PATTERN - Cardiovascular Exam Cardiovascular Exam: REGULAR RHYTHM, +S1, +S2, Murmur. absent: Bradycardia, Tachycardia, Clicks, Diastolic murmur, Gallop, Irregular Rhythm, JVD, RRR, Rubs , +S4 - GI/Abdominal Exam GI & Abdominal Exam: Soft, Normal Bowel Sounds - Rectal Exam Rectal Exam: Deferred. absent: Black Stool, Bloody Stool, Hemorrhoids, Fecal Impaction, NORMAL INSPECTION - Extremities Exam Extremities Exam: Full ROM, Normal Capillary Refill, Normal Inspection - Back Exam Back Exam: NORMAL INSPECTION. absent: CVA tenderness (L), CVA tenderness (R), Full ROM, muscle spasm, paraspinal tenderness, rash noted, tenderness, vertebral tenderness - Neurological Exam Neurological Exam: Alert, Awake, CN II-XII Intact, Normal Gait, Oriented x3. absent: Abnormal Gait, Altered, Motor Sensory Deficit, Reflexes Normal - Psychiatric Exam Psychiatric exam: Normal Affect, Normal Mood. absent: Agitated, Anxious, Depressed, Flat Affect, Homicidal Ideation, Manic, Suicidal Ideation - Skin Skin Exam: Dry, Intact, Normal Color, Warm. absent: Abrasion, Cyanosis, Diaphoretic, Erythema, Mottled, Pallor, Pallor, Petechiae, Rash, Urticaria, Vesicles Assessment and Plan (1) COPD (chronic obstructive pulmonary disease) Status: Acute (2) Dyspnea Status: Acute (3) History of diastolic dysfunction Status: Acute (4) Asthma exacerbation Status: Acute (5) Bronchiectasis Status: Acute (6) Diabetes Status: Chronic (7) HTN (hypertension) Status: Chronic - Assessment and Plan (Free Text) Plan: IMPROVING SLOWLY CONT ABX AND STEROID CONT CARDIAC MEDS WILL FOLLOW.
--- NOTE | 2016-12-25 12:26 | CP.PCM.PN ---
Addendum entered and electronically signed by Jhony Rivera DO 12/25/16 12:27: Leukocytosis with increased neutrophil noted. Likely secondary to Solumedrol use. Original Note: Subjective - Date & Time of Evaluation Date of Evaluation: 12/25/16 Time of Evaluation: 10:00 - Subjective Subjective: PGY3 on heme/onc Dr. Navarro service: Pt seen and examined at bedside this morning. Pt reports improved breathing. No other complaints at the moment. Objective - Vital Signs/Intake and Output Vital Signs (last 24 hours): Temp Pulse Resp BP Pulse Ox 97.3 F L 79 18 103/48 L 100 12/25/16 07:00 12/25/16 08:55 12/25/16 07:00 12/25/16 10:31 12/25/16 07:00 - Medications Medications: Current Medications Albuterol/Ipratropium (Duoneb 3 Mg/0.5 Mg (3 Ml) Ud) 3 ml INH RQ6 PRN PRN Reason: Shortness of Breath Last Admin: 12/25/16 07:30 Dose: 3 ml Budesonide (Pulmicort Respules) 0.5 mg INH RQ12 [facility] Last Admin: 12/25/16 07:30 Dose: 0.5 mg Diltiazem HCl (Cardizem Cd) 120 mg PO DAILY [facility] Last Admin: 12/25/16 10:29 Dose: 120 mg Enoxaparin Sodium (Lovenox) 40 mg SC DAILY [facility] Last Admin: 12/25/16 10:29 Dose: 40 mg Furosemide (Lasix) 40 mg IVP DAILY [facility] Last Admin: 12/25/16 10:31 Dose: Not Given Glimepiride (Amaryl) 1 mg PO DAILY [facility] Last Admin: 12/25/16 10:29 Dose: 1 mg Cefepime HCl (Maxipime Iv 1 Gm Premix) 1 gm in 50 mls @ 100 mls/hr IVPB Q12H [facility] Last Admin: 12/25/16 06:23 Dose: 100 mls/hr Insulin Aspart (Novolog) 0 unit SC ACHS [facility] PRN Reason: Protocol Last Admin: 12/25/16 08:14 Dose: 1 unit Losartan Potassium (Cozaar) 50 mg PO DAILY [facility] Last Admin: 12/25/16 10:29 Dose: 50 mg Methylprednisolone (Solu-Medrol) 40 mg IV Q12 [facility] Last Admin: 12/25/16 10:29 Dose: 40 mg Montelukast Sodium (Singulair) 10 mg PO HS [facility] Last Admin: 12/24/16 21:31 Dose: 10 mg Pantoprazole Sodium (Protonix Ec Tab) 40 mg PO DAILY [facility] Last Admin: 12/25/16 10:29 Dose: 40 mg Rosuvastatin Calcium (Crestor) 5 mg PO HS [facility] Last Admin: 12/24/16 21:32 Dose: 5 mg Tiotropium [place] (Spiriva) 18 mcg INH RQ24 [facility] Last Admin: 12/25/16 07:30 Dose: 18 mcg - Labs Labs: 12/25/16 07:04 12/25/16 07:04 - Constitutional Appears: Non-toxic, No Acute Distress - Head Exam Head Exam: ATRAUMATIC - Eye Exam Eye Exam: Normal appearance - Respiratory Exam Respiratory Exam: Decreased Breath Sounds, Rhonchi, NORMAL BREATHING PATTERN - Cardiovascular Exam Cardiovascular Exam: REGULAR RHYTHM, +S1, +S2 - GI/Abdominal Exam GI & Abdominal Exam: Normal Bowel Sounds - Neurological Exam Neurological Exam: Alert, Awake, Oriented x3 - Psychiatric Exam Psychiatric exam: Normal Mood - Skin Skin Exam: Intact Assessment and Plan - Assessment and Plan (Free Text) Assessment: CML Hold Dusatinib. Outpatient follow up. Anemia Mild. No intervention at this point. SOB Management as per Dr. Castillo.
--- NOTE | 2016-12-25 13:38 | CP.PCM.PN ---
Subjective - Date & Time of Evaluation Date of Evaluation: 12/25/16 Time of Evaluation: 09:30 - Subjective Subjective: Patient seen and examined. Complaining of productive cough and dyspnea on minimal exertion Denies fever or chills, denies chest pain Objective - Vital Signs/Intake and Output Vital Signs (last 24 hours): Temp Pulse Resp BP Pulse Ox 97.3 F L 79 18 103/48 L 100 12/25/16 07:00 12/25/16 08:55 12/25/16 07:00 12/25/16 10:31 12/25/16 07:00 - Medications Medications: Current Medications Albuterol/Ipratropium (Duoneb 3 Mg/0.5 Mg (3 Ml) Ud) 3 ml INH RQ6 PRN PRN Reason: Shortness of Breath Last Admin: 12/25/16 07:30 Dose: 3 ml Budesonide (Pulmicort Respules) 0.5 mg INH RQ12 [facility] Last Admin: 12/25/16 07:30 Dose: 0.5 mg Diltiazem HCl (Cardizem Cd) 120 mg PO DAILY [facility] Last Admin: 12/25/16 10:29 Dose: 120 mg Enoxaparin Sodium (Lovenox) 40 mg SC DAILY [facility] Last Admin: 12/25/16 10:29 Dose: 40 mg Furosemide (Lasix) 40 mg IVP DAILY [facility] Last Admin: 12/25/16 10:31 Dose: Not Given Glimepiride (Amaryl) 1 mg PO DAILY [facility] Last Admin: 12/25/16 10:29 Dose: 1 mg Cefepime HCl (Maxipime Iv 1 Gm Premix) 1 gm in 50 mls @ 100 mls/hr IVPB Q12H [facility] Last Admin: 12/25/16 06:23 Dose: 100 mls/hr Insulin Aspart (Novolog) 0 unit SC ACHS [facility] PRN Reason: Protocol Last Admin: 12/25/16 12:26 Dose: 2 unit Losartan Potassium (Cozaar) 50 mg PO DAILY [facility] Last Admin: 12/25/16 10:29 Dose: 50 mg Methylprednisolone (Solu-Medrol) 40 mg IV Q12 [facility] Last Admin: 12/25/16 10:29 Dose: 40 mg Montelukast Sodium (Singulair) 10 mg PO HS [facility] Last Admin: 12/24/16 21:31 Dose: 10 mg Pantoprazole Sodium (Protonix Ec Tab) 40 mg PO DAILY [facility] Last Admin: 12/25/16 10:29 Dose: 40 mg Rosuvastatin Calcium (Crestor) 5 mg PO HS [facility] Last Admin: 12/24/16 21:32 Dose: 5 mg Tiotropium [place] (Spiriva) 18 mcg INH RQ24 [facility] Last Admin: 12/25/16 07:30 Dose: 18 mcg - Labs Labs: 12/25/16 07:04 12/25/16 07:04 - Head Exam Head Exam: ATRAUMATIC, NORMOCEPHALIC - Eye Exam Eye Exam: Normal appearance - ENT Exam ENT Exam: Mucous Membranes Moist - Neck Exam Neck Exam: Normal Inspection - Respiratory Exam Respiratory Exam: Rales - Cardiovascular Exam Cardiovascular Exam: REGULAR RHYTHM - GI/Abdominal Exam GI & Abdominal Exam: Soft, Normal Bowel Sounds Assessment and Plan (1) COPD (chronic obstructive pulmonary disease) Assessment & Plan: Continue nebulizer treatment and IV steroids Continue antibiotics for bronchiectasis Severe pulmonary hypertension secondary to COPD Status: Acute (2) CHF (congestive heart failure) Status: Acute (3) Pulmonary hypertension Status: Acute
--- NOTE | 2016-12-25 17:53 | CP.PCM.PN ---
<Iker Melgoza - Last Filed: 12/25/16 18:10> Subjective - Date & Time of Evaluation Date of Evaluation: 12/25/16 Time of Evaluation: 17:49 - Subjective Subjective: PGY-[address] Tatum HPI: Pt seen and examined at bedside. Was receiving duoneb at that time. Patients reports some SOB and migrating gassy pain. No other complaints at this time. Denies N,V,D,F,Chills, CP. Objective - Vital Signs/Intake and Output Vital Signs (last 24 hours): Temp Pulse Resp BP Pulse Ox 97.8 F 95 H 20 128/53 L 100 12/25/16 15:08 12/25/16 15:08 12/25/16 15:08 12/25/16 15:08 12/25/16 15:08 Intake and Output: 12/25/16 12/25/16 06:59 18:59 Output Total 500 Balance -500 - Medications Medications: Current Medications Albuterol/Ipratropium (Duoneb 3 Mg/0.5 Mg (3 Ml) Ud) 3 ml INH RQ6 PRN PRN Reason: Shortness of Breath Last Admin: 12/25/16 13:41 Dose: 3 ml Budesonide (Pulmicort Respules) 0.5 mg INH RQ12 [facility] Last Admin: 12/25/16 07:30 Dose: 0.5 mg Diltiazem HCl (Cardizem Cd) 120 mg PO DAILY [facility] Last Admin: 12/25/16 10:29 Dose: 120 mg Docusate Sodium (Colace) 100 mg PO BID [facility] Enoxaparin Sodium (Lovenox) 40 mg SC DAILY [facility] Last Admin: 12/25/16 10:29 Dose: 40 mg Furosemide (Lasix) 40 mg IVP DAILY [facility] Last Admin: 12/25/16 10:31 Dose: Not Given Glimepiride (Amaryl) 1 mg PO DAILY [facility] Last Admin: 12/25/16 10:29 Dose: 1 mg Cefepime HCl (Maxipime Iv 1 Gm Premix) 1 gm in 50 mls @ 100 mls/hr IVPB Q12H [facility] Last Admin: 12/25/16 06:23 Dose: 100 mls/hr Insulin Aspart (Novolog) 0 unit SC ACHS [facility] PRN Reason: Protocol Last Admin: 12/25/16 12:26 Dose: 2 unit Losartan Potassium (Cozaar) 50 mg PO DAILY [facility] Last Admin: 12/25/16 10:29 Dose: 50 mg Methylprednisolone (Solu-Medrol) 40 mg IV Q12 [facility] Last Admin: 12/25/16 10:29 Dose: 40 mg Montelukast Sodium (Singulair) 10 mg PO HS [facility] Last Admin: 12/24/16 21:31 Dose: 10 mg Pantoprazole Sodium (Protonix Ec Tab) 40 mg PO DAILY [facility] Last Admin: 12/25/16 10:29 Dose: 40 mg Rosuvastatin Calcium (Crestor) 5 mg PO HS [facility] Last Admin: 12/24/16 21:32 Dose: 5 mg Tiotropium [place] (Spiriva) 18 mcg INH RQ24 [facility] Last Admin: 12/25/16 07:30 Dose: 18 mcg - Labs Labs: 12/25/16 07:04 12/25/16 07:04 - Constitutional Appears: Well, Non-toxic, No Acute Distress - Head Exam Head Exam: ATRAUMATIC, NORMAL INSPECTION - Eye Exam Eye Exam: EOMI Pupil Exam: Fixed, Irregular, Miosis - ENT Exam ENT Exam: Mucous Membranes Moist - Neck Exam Neck Exam: Full ROM - Respiratory Exam Respiratory Exam: Rales, Rhonchi (inspiratory) Additional comments: expiratory Assessment and Plan - Assessment and Plan (Free Text) Assessment: Dyspnea * Likely secondary to severe pulmonary hypertension and atelectasis * CXR- 12/24/16- Biapical pleural thickening with upper lobe granulomatous changes. Prominent diffuse increased interstitial lung markings bilaterally. Prominent consolidative changes in the mid to lower lung zones bilateral with reticulation at the level of diaphragms. Suggestion of trace bilateral pleural effusions. Right hilar prominence * CT Chest Abdomen Pelvis: Sm. pericardial effusion, extensive bronchiectasis, b /l pleural effusions, scattered tree/bud-like opacities, 3mm LLL pulm nodule. * Cardio (Nino) * Pulm (Jonathan) * Lasix 40mg IVP Daily * Duoneb Q6h PRN for dyspnea/wheezing * Spiriva 18mcg INH Q24h * Singulair 10mg PO qHS * Advair 250/50 1 puff INH Q12h History of diastolic dysfunction * Cardio (Nino) * ProBNP 1280 * Lasix 40mg IVP Daily * Cozaar 50mg PO Daily Pericardial effusion * Cardio (Nino) * Echo: LVEF 74% Grade I abnormal relaxation pattern. Mild to moderate tricuspid regurgitation. Severe Pulmonary hypertension. Small circumferential pericardial effusion. No evidence of cardiac tamponade. Pleural effusion * CXR: Biapical pleural thickening with upper lobe granulomatous changes. Prominent diffuse increased interstitial lung markings bilaterally. Prominent consolidative changes in the mid to lower lung zones bilateral with reticulation at the level of diaphragms. Suggestion of trace bilateral pleural effusions. Right hilar prominence. * CT: Sm. pericardial effusion, extensive bronchiectasis, b/l pleural effusions , scattered tree/bud-like opacities, 3mm LLL pulm nodule. 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 pericardial effusion, extensive bronchiectasis, b/l pleural effusions , scattered tree/bud-like opacities, 3mm LLL pulm nodule. * Patient will require followup CT Chest in October 2017 Prophylactic measure * Lovenox 40mg SC Daily * Protonix 40mg PO Daily <Espinoza Tatum - Last Filed: 12/26/16 19:48> Objective - Vital Signs/Intake and Output Vital Signs (last 24 hours): Temp Pulse Resp BP Pulse Ox 97.6 F 64 18 151/76 H 98 12/26/16 16:00 12/26/16 16:00 12/26/16 16:00 12/26/16 16:00 12/26/16 16:00 Intake and Output: 12/26/16 12/27/16 18:59 06:59 Intake Total 450 Balance 450 - Medications Medications: Current Medications Albuterol/Ipratropium (Duoneb 3 Mg/0.5 Mg (3 Ml) Ud) 3 ml INH RQ6 PRN PRN Reason: Shortness of Breath Last Admin: 12/26/16 19:21 Dose: 3 ml Budesonide (Pulmicort Respules) 0.5 mg INH RQ12 [facility] Last Admin: 12/26/16 19:21 Dose: 0.5 mg Diltiazem HCl (Cardizem Cd) 120 mg PO DAILY [facility] Last Admin: 12/26/16 09:43 Dose: 120 mg Docusate Sodium (Colace) 100 mg PO BID [facility] Last Admin: 12/26/16 18:24 Dose: 100 mg Enoxaparin Sodium (Lovenox) 40 mg SC DAILY [facility] Last Admin: 12/26/16 09:44 Dose: 40 mg Furosemide (Lasix) 40 mg IVP DAILY [facility] Last Admin: 12/26/16 09:43 Dose: 40 mg Glimepiride (Amaryl) 1 mg PO DAILY [facility] Last Admin: 12/26/16 09:42 Dose: 1 mg Cefepime HCl (Maxipime Iv 1 Gm Premix) 1 gm in 50 mls @ 100 mls/hr IVPB Q12H [facility] Last Admin: 12/26/16 18:23 Dose: 100 mls/hr Insulin Aspart (Novolog) 0 unit SC ACHS [facility] PRN Reason: Protocol Last Admin: 12/26/16 18:24 Dose: 1 unit Losartan Potassium (Cozaar) 50 mg PO DAILY [facility] Last Admin: 12/26/16 09:43 Dose: 50 mg Montelukast Sodium (Singulair) 10 mg PO [facility] Last Admin: 12/25/16 21:58 Dose: 10 mg Pantoprazole Sodium (Protonix Ec Tab) 40 mg PO DAILY [facility] Last Admin: 12/26/16 09:44 Dose: 40 mg Prednisone (Prednisone Tab) 20 mg PO DAILY [facility] Last Admin: 12/26/16 12:26 Dose: 20 mg Rosuvastatin Calcium (Crestor) 5 mg PO HS [facility] Last Admin: 12/25/16 21:58 Dose: 5 mg Tiotropium [place] (Spiriva) 18 mcg INH RQ24 [facility] Last Admin: 12/26/16 07:44 Dose: 18 mcg Attending/Attestation - Attestation I have personally seen and examined this patient.: Yes I have fully participated in the care of the patient.: Yes I have reviewed all pertinent clinical information, including history, physical exam and plan: Yes Notes (Text): 12/26/16 19:47 Patient was seen and examined on 12/25/16. Exam, Assessment and Plan were thoroughly gone over with the resident. Espinoza Tatum D.O.
--- NOTE | 2016-12-25 19:28 | CARD ---
APPROVED REPORT EKG Measurement Heart [id number] MI [id number] <Conclusion> Normal sinus rhythm Possible Left atrial enlargement Nonspecific ST and T wave abnormality Abnormal ECG
[2016-12-26] MEDS: Cefepime IV 1 gm in Dextrose 1 GM/50 ML BAG IVPB SCH ×2 (06:06→18:23)
[2016-12-26 07:39] LABS: BASO % 0.1 % (0.0-2.0); HEMATOCRIT 37.7 % (35.0-51.0); LYMPH # 0.6 K/uL (1.0-4.3); LYMPH % 3.8 % (20.0-40.0); MEAN CELL VOLUME 91.2 fL (80.0-94.0); MEAN CORPUSCULAR HEMOGLOBIN 30.1 pg (27.0-31.0); MEAN PLATELET VOLUME 8.1 fL (7.2-11.7); MONO % 6.3 % (0.0-10.0); PLATELET COUNT 265 K/uL (130-400); RED CELL DISTRIBUTION WIDTH 14.7 % (11.5-14.5); WHITE BLOOD COUNT 15.7 K/uL (4.8-10.8)
[2016-12-26] MEDS: Budesonide 0.5 mg/2 ml Inhal Susp UD INH SCH ×2 (07:44→19:21)
[2016-12-26] MEDS: Tiotropium 18 mcg Cap For Inhalation INH SCH (07:44)
[2016-12-26] MEDS: Albuterol-Ipratrop 3 mg / 0.5 (3 ml) UD INH PRN ×2 (07:44→19:21)
[2016-12-26] MEDS: (Novolog) Insulin Aspart, Recombinant 100 u/ml 10 ml vial SC SCH ×4 (08:02→22:11)
[2016-12-26 08:33] LABS: ALB/GLOB RATIO 0.9 (1.0-2.1); ALKALINE PHOSPHATASE 83 U/L (38-126); ALT/SGPT 44 U/L (21-72); AST/SGOT 29 U/L (17-59); BILIRUBIN,TOTAL 0.5 mg/dL (0.2-1.3); BLOOD UREA NITROGEN 21 mg/dL (9-20); CALCIUM 9.1 mg/dl (8.6-10.4); CARBON DIOXIDE 34 mmol/L (22-30); CHLORIDE 95 mmol/L (98-107); GFR AFRICAN-AMERICAN > 60; GLUCOSE,RANDOM 198 mg/dL (75-110); POTASSIUM 5.7 mmol/L (3.6-5.2); SODIUM 139 mmol/L (132-148); TOTAL PROTEIN 6.5 g/dL (6.3-8.3)
[2016-12-26] MEDS ORDERED: Sod Polystyrene Sulf 15 gm/60 ml Oral Susp PO ONE (09:01)
[2016-12-26 09:31] LABS: NEUTROPHIL 82 % (50-75); TOTAL CELLS COUNTED 100
[2016-12-26] MEDS: diltiaZEM 120 mg/24 Hours CD Cap PO SCH (09:43)
[2016-12-26] MEDS: MethylPREDNISolone 40 mg Vial IV SCH (09:43)
[2016-12-26] MEDS: Enoxaparin 40 mg Syringe SC SCH (09:44)
[2016-12-26] MEDS: Pantoprazole 40 mg EC Tab PO SCH (09:44)
--- NOTE | 2016-12-26 11:45 | CP.PCM.PN ---
Subjective - Date & Time of Evaluation Date of Evaluation: 12/26/16 Time of Evaluation: 09:20 - Subjective Subjective: patient seen and examined. Breathing and cough much improved Still has dyspnea on exertion Objective - Vital Signs/Intake and Output Vital Signs (last 24 hours): Temp Pulse Resp BP Pulse Ox 97.5 F L 64 20 121/61 97 12/26/16 07:30 12/26/16 07:30 12/26/16 07:30 12/26/16 09:43 12/26/16 07:30 - Medications Medications: Current Medications Albuterol/Ipratropium (Duoneb 3 Mg/0.5 Mg (3 Ml) Ud) 3 ml INH RQ6 PRN PRN Reason: Shortness of Breath Last Admin: 12/26/16 07:44 Dose: 3 ml Budesonide (Pulmicort Respules) 0.5 mg INH RQ12 [facility] Last Admin: 12/26/16 07:44 Dose: 0.5 mg Diltiazem HCl (Cardizem Cd) 120 mg PO DAILY [facility] Last Admin: 12/26/16 09:43 Dose: 120 mg Docusate Sodium (Colace) 100 mg PO BID [facility] Last Admin: 12/26/16 09:43 Dose: 100 mg Enoxaparin Sodium (Lovenox) 40 mg SC DAILY [facility] Last Admin: 12/26/16 09:44 Dose: 40 mg Furosemide (Lasix) 40 mg IVP DAILY [facility] Last Admin: 12/26/16 09:43 Dose: 40 mg Glimepiride (Amaryl) 1 mg PO DAILY [facility] Last Admin: 12/26/16 09:42 Dose: 1 mg Cefepime HCl (Maxipime Iv 1 Gm Premix) 1 gm in 50 mls @ 100 mls/hr IVPB Q12H [facility] Last Admin: 12/26/16 06:06 Dose: 100 mls/hr Insulin Aspart (Novolog) 0 unit SC ACHS [facility] PRN Reason: Protocol Last Admin: 12/26/16 08:02 Dose: 1 unit Losartan Potassium (Cozaar) 50 mg PO DAILY [facility] Last Admin: 12/26/16 09:43 Dose: 50 mg Methylprednisolone (Solu-Medrol) 40 mg IV Q12 [facility] Last Admin: 12/26/16 09:43 Dose: 40 mg Montelukast Sodium (Singulair) 10 mg PO HS [facility] Last Admin: 12/25/16 21:58 Dose: 10 mg Pantoprazole Sodium (Protonix Ec Tab) 40 mg PO DAILY [facility] Last Admin: 12/26/16 09:44 Dose: 40 mg Rosuvastatin Calcium (Crestor) 5 mg PO [facility] Last Admin: 12/25/16 21:58 Dose: 5 mg Tiotropium [place] (Spiriva) 18 mcg INH RQ24 [facility] Last Admin: 12/26/16 07:44 Dose: 18 mcg - Head Exam Head Exam: ATRAUMATIC, NORMOCEPHALIC - Eye Exam Eye Exam: Normal appearance - ENT Exam ENT Exam: Mucous Membranes Moist - Neck Exam Neck Exam: Full ROM - Respiratory Exam Respiratory Exam: Rhonchi - Cardiovascular Exam Cardiovascular Exam: REGULAR RHYTHM - GI/Abdominal Exam GI & Abdominal Exam: Soft, Normal Bowel Sounds Assessment and Plan (1) COPD (chronic obstructive pulmonary disease) Assessment & Plan: continue nebulizer treatment and switch to p.o. prednisone continue antibiotics for now ABG room air Status: Acute (2) CHF (congestive heart failure) Status: Acute (3) Pulmonary hypertension Status: Acute
--- NOTE | 2016-12-26 16:24 | CP.PCM.PN ---
<Iker Melgoza - Last Filed: 12/26/16 16:59> Subjective - Date & Time of Evaluation Date of Evaluation: 12/26/16 Time of Evaluation: 16:21 - Subjective Subjective: PGY-[address] Tatum HPI: Patient was seen and examined at bedside. Resting comfortably while laying down. Patient admits to a mild cough with minimally productive clear/white sputum. Denies signs of chest pain, n/v/d, abdominal pain or leg pain. Patient states that his breathing feels much improved with treatments. He has been passing urine and BM without any issues. Patient is otherwise without complaints. No other issues noted at this time. Denies N/V/D/C/F/chills/CP. Objective - Vital Signs/Intake and Output Vital Signs (last 24 hours): Temp Pulse Resp BP Pulse Ox 97.5 F L 74 20 121/61 97 12/26/16 07:30 12/26/16 12:12 12/26/16 07:30 12/26/16 09:43 12/26/16 07:30 Intake and Output: 12/26/16 12/26/16 06:59 18:59 Intake Total 450 Balance 450 - Medications Medications: Current Medications Albuterol/Ipratropium (Duoneb 3 Mg/0.5 Mg (3 Ml) Ud) 3 ml INH RQ6 PRN PRN Reason: Shortness of Breath Last Admin: 12/26/16 07:44 Dose: 3 ml Budesonide (Pulmicort Respules) 0.5 mg INH RQ12 [facility] Last Admin: 12/26/16 07:44 Dose: 0.5 mg Diltiazem HCl (Cardizem Cd) 120 mg PO DAILY [facility] Last Admin: 12/26/16 09:43 Dose: 120 mg Docusate Sodium (Colace) 100 mg PO BID [facility] Last Admin: 12/26/16 09:43 Dose: 100 mg Enoxaparin Sodium (Lovenox) 40 mg SC DAILY [facility] Last Admin: 12/26/16 09:44 Dose: 40 mg Furosemide (Lasix) 40 mg IVP DAILY [facility] Last Admin: 12/26/16 09:43 Dose: 40 mg Glimepiride (Amaryl) 1 mg PO DAILY [facility] Last Admin: 12/26/16 09:42 Dose: 1 mg Cefepime HCl (Maxipime Iv 1 Gm Premix) 1 gm in 50 mls @ 100 mls/hr IVPB Q12H [facility] Last Admin: 12/26/16 06:06 Dose: 100 mls/hr Insulin Aspart (Novolog) 0 unit SC ACHS [facility] PRN Reason: Protocol Last Admin: 12/26/16 12:26 Dose: 2 unit Losartan Potassium (Cozaar) 50 mg PO DAILY [facility] Last Admin: 12/26/16 09:43 Dose: 50 mg Montelukast Sodium (Singulair) 10 mg PO HS [facility] Last Admin: 12/25/16 21:58 Dose: 10 mg Pantoprazole Sodium (Protonix Ec Tab) 40 mg PO DAILY [facility] Last Admin: 12/26/16 09:44 Dose: 40 mg Prednisone (Prednisone Tab) 20 mg PO DAILY [facility] Last Admin: 12/26/16 12:26 Dose: 20 mg Rosuvastatin Calcium (Crestor) 5 mg PO HS [facility] Last Admin: 12/25/16 21:58 Dose: 5 mg Tiotropium [place] (Spiriva) 18 mcg INH RQ24 [facility] Last Admin: 12/26/16 07:44 Dose: 18 mcg - Constitutional Appears: Well, Non-toxic, No Acute Distress - Head Exam Head Exam: NORMAL INSPECTION - Eye Exam Eye Exam: EOMI - ENT Exam ENT Exam: Mucous Membranes Moist - Respiratory Exam Respiratory Exam: Rales (global), Rhonchi (global), Wheezes (Upper L lung) - Cardiovascular Exam Cardiovascular Exam: REGULAR RHYTHM, RRR - GI/Abdominal Exam GI & Abdominal Exam: Soft, Normal Bowel Sounds. absent: Distended, Tenderness - Exam Exam: absent: Scrotal Swelling - Extremities Exam Extremities Exam: absent: Calf Tenderness, Joint Swelling, Pedal Edema, Tenderness - Neurological Exam Neurological Exam: Alert, Awake, Oriented x3 - Psychiatric Exam Psychiatric exam: Normal Affect, Normal Mood - Skin Skin Exam: Dry, Intact, Normal Color, Warm Assessment and Plan - Assessment and Plan (Free Text) Assessment: Dyspnea * Likely secondary to severe pulmonary hypertension and bronchiectasis * CXR- 12/24/16- Biapical pleural thickening with upper lobe granulomatous changes. Prominent diffuse increased interstitial lung markings bilaterally. Prominent consolidative changes in the mid to lower lung zones bilateral with reticulation at the level of diaphragms. Suggestion of trace bilateral pleural effusions. Right hilar prominence * CT Chest Abdomen Pelvis: Sm. pericardial effusion, extensive bronchiectasis, b /l pleural effusions, scattered tree/bud-like opacities, 3mm LLL pulm nodule. * Cardio ([place]ino) * Pulm ([place]) - PO prednisone * Lasix 40mg IVP Daily * Duoneb Q6h PRN for dyspnea/wheezing * Spiriva 18mcg INH Q24h * Singulair 10mg PO qHS * Advair 250/50 1 puff INH Q12h * Cefepine 1g IV Q12 * Solumedrol 40mg IV Q12 History of diastolic dysfunction * Cardio (Nino) * ProBNP 1280 * Lasix 40mg IVP Daily * Cozaar 50mg PO Daily * Diltiazem 120mg PO QD Pericardial effusion * Cardio (Nino) * Echo: LVEF 74% Grade I abnormal relaxation pattern. Mild to moderate tricuspid regurgitation. Severe Pulmonary hypertension. Small circumferential pericardial effusion. No evidence of cardiac tamponade. Pleural effusion * S/P Thoracentesis October 2016 * CXR: Biapical pleural thickening with upper lobe granulomatous changes. Prominent diffuse increased interstitial lung markings bilaterally. Prominent consolidative changes in the mid to lower lung zones bilateral with reticulation at the level of diaphragms. Suggestion of trace bilateral pleural effusions. Right hilar prominence. * CT: Sm. pericardial effusion, extensive bronchiectasis, b/l pleural effusions , scattered tree/bud-like opacities, 3mm LLL pulm nodule. 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 pericardial effusion, extensive bronchiectasis, b/l pleural effusions , scattered tree/bud-like opacities, 3mm LLL pulm nodule. * Patient will require followup CT Chest in October 2017 Prophylactic measure * Lovenox 40mg SC Daily * Protonix 40mg PO Daily <Espinoza Tatum - Last Filed: 12/26/16 19:47> Objective - Vital Signs/Intake and Output Vital Signs (last 24 hours): Temp Pulse Resp BP Pulse Ox 97.6 F 64 18 151/76 H 98 12/26/16 16:00 12/26/16 16:00 12/26/16 16:00 12/26/16 16:00 12/26/16 16:00 Intake and Output: 12/26/16 12/27/16 18:59 06:59 Intake Total 450 Balance 450 - Medications Medications: Current Medications Albuterol/Ipratropium (Duoneb 3 Mg/0.5 Mg (3 Ml) Ud) 3 ml INH RQ6 PRN PRN Reason: Shortness of Breath Last Admin: 12/26/16 19:21 Dose: 3 ml Budesonide (Pulmicort Respules) 0.5 mg INH RQ12 [facility] Last Admin: 12/26/16 19:21 Dose: 0.5 mg Diltiazem HCl (Cardizem Cd) 120 mg PO DAILY [facility] Last Admin: 12/26/16 09:43 Dose: 120 mg Docusate Sodium (Colace) 100 mg PO BID [facility] Last Admin: 12/26/16 18:24 Dose: 100 mg Enoxaparin Sodium (Lovenox) 40 mg SC DAILY [facility] Last Admin: 12/26/16 09:44 Dose: 40 mg Furosemide (Lasix) 40 mg IVP DAILY [facility] Last Admin: 12/26/16 09:43 Dose: 40 mg Glimepiride (Amaryl) 1 mg PO DAILY [facility] Last Admin: 12/26/16 09:42 Dose: 1 mg Cefepime HCl (Maxipime Iv 1 Gm Premix) 1 gm in 50 mls @ 100 mls/hr IVPB Q12H [facility] Last Admin: 12/26/16 18:23 Dose: 100 mls/hr Insulin Aspart (Novolog) 0 unit SC ACHS [facility] PRN Reason: Protocol Last Admin: 12/26/16 18:24 Dose: 1 unit Losartan Potassium (Cozaar) 50 mg PO DAILY [facility] Last Admin: 12/26/16 09:43 Dose: 50 mg Montelukast Sodium (Singulair) 10 mg PO HS [facility] Last Admin: 12/25/16 21:58 Dose: 10 mg Pantoprazole Sodium (Protonix Ec Tab) 40 mg PO DAILY [facility] Last Admin: 12/26/16 09:44 Dose: 40 mg Prednisone (Prednisone Tab) 20 mg PO DAILY [facility] Last Admin: 12/26/16 12:26 Dose: 20 mg Rosuvastatin Calcium (Crestor) 5 mg PO HS [facility] Last Admin: 12/25/16 21:58 Dose: 5 mg Tiotropium [place] (Spiriva) 18 mcg INH RQ24 [facility] Last Admin: 12/26/16 07:44 Dose: 18 mcg Attending/Attestation - Attestation I have personally seen and examined this patient.: Yes I have fully participated in the care of the patient.: Yes I have reviewed all pertinent clinical information, including history, physical exam and plan: Yes Notes (Text): 12/26/16 19:42 Patient was seen and examined at 9:10 AM 12/26/16. Exam, assessment and plan were thoroughly gone over with the resident. ROS: Breathing much better with less dyspnea/sob Still with productive cough productive of light yellow material Moving his bowels NO abdominal pain NO N/V NO Chest Pain NO other complaint upon FULL ROS Also on exam: Respiratory: Bilateral Mid to Lower Lung Inspiratory Crackles : NO scrotal swelling/tenderness (this was performed as there was a questionable hydrocele on CT Abdomen/Pelvis) Assessments: Dyspnea likely secondary to Severe Pulmonary HTN and Bronchiectasis Diastolic Dysfunction Right Heart Hx Pericardial Effusion Hx Pleural Effusion Hx CML Hx DM 2 Hx HTN Hx HLD Espinoza Tatum D.O.
--- NOTE | 2016-12-26 19:21 | CP.PCM.PN ---
Subjective - Date & Time of Evaluation Date of Evaluation: 12/26/16 Time of Evaluation: 19:21 - Subjective Subjective: NO ORTHOPNEA, PND, CP. Objective - Vital Signs/Intake and Output Vital Signs (last 24 hours): Temp Pulse Resp BP Pulse Ox 97.6 F 64 18 151/76 H 98 12/26/16 16:00 12/26/16 16:00 12/26/16 16:00 12/26/16 16:00 12/26/16 16:00 Intake and Output: 12/26/16 12/27/16 18:59 06:59 Intake Total 450 Balance 450 - Medications Medications: Current Medications Albuterol/Ipratropium (Duoneb 3 Mg/0.5 Mg (3 Ml) Ud) 3 ml INH RQ6 PRN PRN Reason: Shortness of Breath Last Admin: 12/26/16 07:44 Dose: 3 ml Budesonide (Pulmicort Respules) 0.5 mg INH RQ12 [facility] Last Admin: 12/26/16 07:44 Dose: 0.5 mg Diltiazem HCl (Cardizem Cd) 120 mg PO DAILY [facility] Last Admin: 12/26/16 09:43 Dose: 120 mg Docusate Sodium (Colace) 100 mg PO BID [facility] Last Admin: 12/26/16 18:24 Dose: 100 mg Enoxaparin Sodium (Lovenox) 40 mg SC DAILY [facility] Last Admin: 12/26/16 09:44 Dose: 40 mg Furosemide (Lasix) 40 mg IVP DAILY [facility] Last Admin: 12/26/16 09:43 Dose: 40 mg Glimepiride (Amaryl) 1 mg PO DAILY [facility] Last Admin: 12/26/16 09:42 Dose: 1 mg Cefepime HCl (Maxipime Iv 1 Gm Premix) 1 gm in 50 mls @ 100 mls/hr IVPB Q12H [facility] Last Admin: 12/26/16 18:23 Dose: 100 mls/hr Insulin Aspart (Novolog) 0 unit SC ACHS [facility] PRN Reason: Protocol Last Admin: 12/26/16 18:24 Dose: 1 unit Losartan Potassium (Cozaar) 50 mg PO DAILY [facility] Last Admin: 12/26/16 09:43 Dose: 50 mg Montelukast Sodium (Singulair) 10 mg PO HS [facility] Last Admin: 12/25/16 21:58 Dose: 10 mg Pantoprazole Sodium (Protonix Ec Tab) 40 mg PO DAILY [facility] Last Admin: 12/26/16 09:44 Dose: 40 mg Prednisone (Prednisone Tab) 20 mg PO DAILY [facility] Last Admin: 12/26/16 12:26 Dose: 20 mg Rosuvastatin Calcium (Crestor) 5 mg PO HS [facility] Last Admin: 12/25/16 21:58 Dose: 5 mg Tiotropium [place] (Spiriva) 18 mcg INH RQ24 [facility] Last Admin: 12/26/16 07:44 Dose: 18 mcg - Constitutional Appears: Well - Head Exam Head Exam: ATRAUMATIC, NORMAL INSPECTION, NORMOCEPHALIC - Eye Exam Eye Exam: EOMI, Normal appearance, PERRL Pupil Exam: NORMAL ACCOMODATION, PERRL - ENT Exam ENT Exam: Mucous Membranes Moist, Normal Exam - Neck Exam Neck Exam: Full ROM, Normal Inspection. absent: Lymphadenopathy - Respiratory Exam Respiratory Exam: Decreased Breath Sounds, Wheezes. absent: Accessory Muscle Use, Chest Wall Tenderness, Clear to Ausculation Bilateral, Prolonged Expiratory Phase, Rales, Rhonchi, Respiratory Distress, Stridor, NORMAL BREATHING PATTERN - Cardiovascular Exam Cardiovascular Exam: REGULAR RHYTHM, +S1, +S2, Murmur - GI/Abdominal Exam GI & Abdominal Exam: Soft, Normal Bowel Sounds. absent: Tenderness - Rectal Exam Rectal Exam: Deferred - Extremities Exam Extremities Exam: Full ROM, Normal Capillary Refill, Normal Inspection. absent : Joint Swelling, Pedal Edema - Back Exam Back Exam: NORMAL INSPECTION - Neurological Exam Neurological Exam: Alert, Awake, CN II-XII Intact, Normal Gait, Oriented x3 - Psychiatric Exam Psychiatric exam: Normal Affect, Normal Mood - Skin Skin Exam: Dry, Intact, Normal Color, Warm Assessment and Plan (1) CHF (congestive heart failure) Status: Acute (2) COPD (chronic obstructive pulmonary disease) Status: Acute (3) History of diastolic dysfunction Status: Acute (4) Hyperlipidemia Status: Acute (5) Asthma exacerbation Status: Acute (6) Bronchiectasis Status: Acute (7) Pulmonary hypertension Status: Acute (8) Diabetes Status: Chronic (9) HTN (hypertension) Status: Chronic - Assessment and Plan (Free Text) Plan: DOING WELL. SOB APPEARS TO BE PULM IN ORIGIN. CONT CARE PER PULM
--- NOTE | 2016-12-27 05:32 | CP.PCM.PN ---
Subjective - Date & Time of Evaluation Date of Evaluation: 12/26/16 Time of Evaluation: 16:00 - Subjective Subjective: Breathing better Objective - Vital Signs/Intake and Output Vital Signs (last 24 hours): Temp Pulse Resp BP Pulse Ox 98.0 F 73 20 182/84 H 97 12/26/16 23:00 12/27/16 04:37 12/27/16 04:37 12/27/16 04:37 12/26/16 23:00 Intake and Output: 12/26/16 12/27/16 18:59 06:59 Intake Total 450 Output Total 300 Balance 450 -300 - Medications Medications: Current Medications Albuterol/Ipratropium (Duoneb 3 Mg/0.5 Mg (3 Ml) Ud) 3 ml INH RQ6 PRN PRN Reason: Shortness of Breath Last Admin: 12/26/16 19:21 Dose: 3 ml Budesonide (Pulmicort Respules) 0.5 mg INH RQ12 [facility] Last Admin: 12/26/16 19:21 Dose: 0.5 mg Diltiazem HCl (Cardizem Cd) 120 mg PO DAILY [facility] Last Admin: 12/26/16 09:43 Dose: 120 mg Docusate Sodium (Colace) 100 mg PO BID [facility] Last Admin: 12/26/16 18:24 Dose: 100 mg Enoxaparin Sodium (Lovenox) 40 mg SC DAILY [facility] Last Admin: 12/26/16 09:44 Dose: 40 mg Furosemide (Lasix) 40 mg IVP DAILY [facility] Last Admin: 12/26/16 09:43 Dose: 40 mg Glimepiride (Amaryl) 1 mg PO DAILY [facility] Last Admin: 12/26/16 09:42 Dose: 1 mg Cefepime HCl (Maxipime Iv 1 Gm Premix) 1 gm in 50 mls @ 100 mls/hr IVPB Q12H [facility] Last Admin: 12/26/16 18:23 Dose: 100 mls/hr Insulin Aspart (Novolog) 0 unit SC ACHS [facility] PRN Reason: Protocol Last Admin: 12/26/16 22:11 Dose: Not Given Losartan Potassium (Cozaar) 50 mg PO DAILY [facility] Last Admin: 12/26/16 09:43 Dose: 50 mg Montelukast Sodium (Singulair) 10 mg PO HS [facility] Last Admin: 12/26/16 22:09 Dose: 10 mg Pantoprazole Sodium (Protonix Ec Tab) 40 mg PO DAILY [facility] Last Admin: 12/26/16 09:44 Dose: 40 mg Prednisone (Prednisone Tab) 20 mg PO DAILY [facility] Last Admin: 12/26/16 12:26 Dose: 20 mg Rosuvastatin Calcium (Crestor) 5 mg PO HS [facility] Last Admin: 12/26/16 22:09 Dose: 5 mg Tiotropium [place] (Spiriva) 18 mcg INH RQ24 [facility] Last Admin: 12/26/16 07:44 Dose: 18 mcg - Head Exam Head Exam: ATRAUMATIC - Eye Exam Eye Exam: Normal appearance - ENT Exam ENT Exam: Mucous Membranes Dry - Respiratory Exam Respiratory Exam: NORMAL BREATHING PATTERN - Cardiovascular Exam Cardiovascular Exam: +S1, +S2 - GI/Abdominal Exam GI & Abdominal Exam: Normal Bowel Sounds - Extremities Exam Extremities Exam: Normal Inspection Assessment and Plan (1) CML (chronic myelocytic leukemia) Assessment & Plan: treatment on hold outpatient f/u Status: Chronic
[2016-12-27] MEDS: Cefepime IV 1 gm in Dextrose 1 GM/50 ML BAG IVPB SCH ×2 (06:02→21:00)
[2016-12-27 07:30] LABS: BASO % 0.2 % (0.0-2.0); EOS # 0.1 K/uL (0.0-0.7); EOS % 0.6 % (0.0-4.0); LYMPH # 1.2 K/uL (1.0-4.3); LYMPH % 8.7 % (20.0-40.0); MEAN CORPUSCULAR HEMOGLOBIN 30.1 pg (27.0-31.0); MEAN CORPUSCULAR HGB CONC 32.7 g/dL (33.0-37.0); MEAN PLATELET VOLUME 7.8 fL (7.2-11.7); MONO # 1.8 K/uL (0.0-0.8); MONO % 13.4 % (0.0-10.0); NRBC % 0.1 % (0.0-2.0); PLATELET COUNT 243 K/uL (130-400); RED CELL DISTRIBUTION WIDTH 14.7 % (11.5-14.5); WHITE BLOOD COUNT 13.8 K/uL (4.8-10.8)
[2016-12-27] MEDS: Albuterol-Ipratrop 3 mg / 0.5 (3 ml) UD INH PRN ×3 (07:31→19:30)
[2016-12-27] MEDS: Budesonide 0.5 mg/2 ml Inhal Susp UD INH SCH ×2 (07:31→19:30)
[2016-12-27] MEDS: Tiotropium 18 mcg Cap For Inhalation INH SCH (07:31)
[2016-12-27 07:41] LABS: CHLORIDE 93 mmol/L (98-107); SODIUM 137 mmol/L (132-148)
[2016-12-27 07:42] LABS: POTASSIUM 3.8 mmol/L (3.6-5.2)
[2016-12-27] MEDS: (Novolog) Insulin Aspart, Recombinant 100 u/ml 10 ml vial SC SCH ×4 (07:42→22:46)
[2016-12-27 07:44] LABS: ALKALINE PHOSPHATASE 68 U/L (38-126); ALT/SGPT 40 U/L (21-72); AST/SGOT 20 U/L (17-59); BILIRUBIN,TOTAL 0.5 mg/dL (0.2-1.3); BLOOD UREA NITROGEN 17 mg/dL (9-20); CARBON DIOXIDE 36 mmol/L (22-30); GFR AFRICAN-AMERICAN > 60; GLUCOSE,RANDOM 111 mg/dL (75-110); TOTAL PROTEIN 5.9 g/dL (6.3-8.3)
[2016-12-27 07:45] LABS: CALCIUM 8.8 mg/dl (8.6-10.4)
[2016-12-27] MEDS: Pantoprazole 40 mg EC Tab PO SCH (09:28)
[2016-12-27] MEDS: diltiaZEM 120 mg/24 Hours CD Cap PO SCH (09:28)
[2016-12-27] MEDS: Enoxaparin 40 mg Syringe SC SCH (09:28)
[2016-12-27 10:23] LABS: NEUTROPHIL 72 % (50-75); TOTAL CELLS COUNTED 100
--- NOTE | 2016-12-27 11:49 | CP.PCM.PN ---
Subjective - Date & Time of Evaluation Date of Evaluation: 12/27/16 Time of Evaluation: 10:00 - Subjective Subjective: Patient seen and examined. Breathing and cough much improved and is able to walk Afebrile He denies any chest pain CML treatment on hold Objective - Vital Signs/Intake and Output Vital Signs (last 24 hours): Temp Pulse Resp BP Pulse Ox 97.8 F 52 L 18 124/66 100 12/27/16 07:00 12/27/16 07:00 12/27/16 07:00 12/27/16 09:27 12/27/16 07:00 Intake and Output: 12/27/16 12/27/16 06:59 18:59 Output Total 300 Balance -300 - Medications Medications: Current Medications Albuterol/Ipratropium (Duoneb 3 Mg/0.5 Mg (3 Ml) Ud) 3 ml INH RQ6 PRN PRN Reason: Shortness of Breath Last Admin: 12/27/16 07:31 Dose: 3 ml Budesonide (Pulmicort Respules) 0.5 mg INH RQ12 [facility] Last Admin: 12/27/16 07:31 Dose: 0.5 mg Diltiazem HCl (Cardizem Cd) 120 mg PO DAILY [facility] Last Admin: 12/27/16 09:28 Dose: 120 mg Docusate Sodium (Colace) 100 mg PO BID [facility] Last Admin: 12/27/16 09:28 Dose: 100 mg Enoxaparin Sodium (Lovenox) 40 mg SC DAILY [facility] Last Admin: 12/27/16 09:28 Dose: 40 mg Furosemide (Lasix) 40 mg IVP DAILY [facility] Last Admin: 12/27/16 09:27 Dose: 40 mg Glimepiride (Amaryl) 1 mg PO DAILY [facility] Last Admin: 12/27/16 09:28 Dose: 1 mg Cefepime HCl (Maxipime Iv 1 Gm Premix) 1 gm in 50 mls @ 100 mls/hr IVPB Q12H [facility] Last Admin: 12/27/16 06:02 Dose: 100 mls/hr Insulin Aspart (Novolog) 0 unit SC ACHS [facility] PRN Reason: Protocol Last Admin: 12/27/16 11:44 Dose: Not Given Losartan Potassium (Cozaar) 50 mg PO DAILY [facility] Last Admin: 12/27/16 09:28 Dose: 50 mg Montelukast Sodium (Singulair) 10 mg PO HS [facility] Last Admin: 12/26/16 22:09 Dose: 10 mg Pantoprazole Sodium (Protonix Ec Tab) 40 mg PO DAILY [facility] Last Admin: 12/27/16 09:28 Dose: 40 mg Prednisone (Prednisone Tab) 20 mg PO DAILY [facility] Last Admin: 12/27/16 09:28 Dose: 20 mg Rosuvastatin Calcium (Crestor) 5 mg PO HS [facility] Last Admin: 12/26/16 22:09 Dose: 5 mg Tiotropium [place] (Spiriva) 18 mcg INH RQ24 [facility] Last Admin: 12/27/16 07:31 Dose: 18 mcg - Labs Labs: 12/27/16 07:09 12/27/16 07:09 - Head Exam Head Exam: ATRAUMATIC, NORMOCEPHALIC - Eye Exam Eye Exam: Normal appearance - ENT Exam ENT Exam: Mucous Membranes Moist - Neck Exam Neck Exam: Normal Inspection - Respiratory Exam Respiratory Exam: Decreased Breath Sounds - Cardiovascular Exam Cardiovascular Exam: REGULAR RHYTHM - GI/Abdominal Exam GI & Abdominal Exam: Soft Assessment and Plan (1) COPD (chronic obstructive pulmonary disease) Assessment & Plan: Discharge patient home on prednisone, by mouth antibiotic, inhaled steroids and albuterol Follow-up in the office Status: Acute (2) CHF (congestive heart failure) Status: Acute (3) Pulmonary hypertension Status: Acute
--- NOTE | 2016-12-27 12:16 | CP.PCM.PN ---
Subjective - Date & Time of Evaluation Date of Evaluation: 12/27/16 Time of Evaluation: 13:31 - Subjective Subjective: NO SOB OR COUGH. NO CP Objective - Vital Signs/Intake and Output Vital Signs (last 24 hours): Temp Pulse Resp BP Pulse Ox 97.8 F 52 L 18 124/66 100 12/27/16 07:00 12/27/16 07:00 12/27/16 07:00 12/27/16 09:27 12/27/16 07:00 Intake and Output: 12/27/16 12/27/16 06:59 18:59 Output Total 300 Balance -300 - Medications Medications: Current Medications Albuterol/Ipratropium (Duoneb 3 Mg/0.5 Mg (3 Ml) Ud) 3 ml INH RQ6 PRN PRN Reason: Shortness of Breath Last Admin: 12/27/16 07:31 Dose: 3 ml Budesonide (Pulmicort Respules) 0.5 mg INH RQ12 [facility] Last Admin: 12/27/16 07:31 Dose: 0.5 mg Diltiazem HCl (Cardizem Cd) 120 mg PO DAILY [facility] Last Admin: 12/27/16 09:28 Dose: 120 mg Docusate Sodium (Colace) 100 mg PO BID [facility] Last Admin: 12/27/16 09:28 Dose: 100 mg Enoxaparin Sodium (Lovenox) 40 mg SC DAILY [facility] Last Admin: 12/27/16 09:28 Dose: 40 mg Furosemide (Lasix) 40 mg IVP DAILY [facility] Last Admin: 12/27/16 09:27 Dose: 40 mg Glimepiride (Amaryl) 1 mg PO DAILY [facility] Last Admin: 12/27/16 09:28 Dose: 1 mg Cefepime HCl (Maxipime Iv 1 Gm Premix) 1 gm in 50 mls @ 100 mls/hr IVPB Q12H [facility] Last Admin: 12/27/16 06:02 Dose: 100 mls/hr Insulin Aspart (Novolog) 0 unit SC ACHS [facility] PRN Reason: Protocol Last Admin: 12/27/16 11:44 Dose: Not Given Losartan Potassium (Cozaar) 50 mg PO DAILY [facility] Last Admin: 12/27/16 09:28 Dose: 50 mg Montelukast Sodium (Singulair) 10 mg PO HS [facility] Last Admin: 12/26/16 22:09 Dose: 10 mg Pantoprazole Sodium (Protonix Ec Tab) 40 mg PO DAILY [facility] Last Admin: 12/27/16 09:28 Dose: 40 mg Prednisone (Prednisone Tab) 20 mg PO DAILY [facility] Last Admin: 12/27/16 09:28 Dose: 20 mg Rosuvastatin Calcium (Crestor) 5 mg PO HS [facility] Last Admin: 12/26/16 22:09 Dose: 5 mg Tiotropium [place] (Spiriva) 18 mcg INH RQ24 [facility] Last Admin: 12/27/16 07:31 Dose: 18 mcg - Labs Labs: 12/27/16 07:09 12/27/16 07:09 - Constitutional Appears: Well - Head Exam Head Exam: ATRAUMATIC, NORMAL INSPECTION, NORMOCEPHALIC - Eye Exam Eye Exam: EOMI, Normal appearance, PERRL Pupil Exam: NORMAL ACCOMODATION, PERRL - ENT Exam ENT Exam: Mucous Membranes Moist, Normal Exam - Neck Exam Neck Exam: Full ROM, Normal Inspection. absent: Lymphadenopathy - Respiratory Exam Respiratory Exam: Clear to Ausculation Bilateral, NORMAL BREATHING PATTERN - Cardiovascular Exam Cardiovascular Exam: REGULAR RHYTHM, +S1, +S2, Murmur - GI/Abdominal Exam GI & Abdominal Exam: Soft, Normal Bowel Sounds. absent: Tenderness - Rectal Exam Rectal Exam: Deferred - Extremities Exam Extremities Exam: Full ROM, Normal Capillary Refill, Normal Inspection. absent : Joint Swelling, Pedal Edema - Back Exam Back Exam: NORMAL INSPECTION - Neurological Exam Neurological Exam: Alert, Awake, CN II-XII Intact, Normal Gait, Oriented x3 - Psychiatric Exam Psychiatric exam: Normal Affect, Normal Mood - Skin Skin Exam: Dry, Intact, Normal Color, Warm Assessment and Plan (1) Asthma exacerbation Status: Acute (2) Bronchiectasis Status: Acute (3) Anemia Status: Acute (4) HTN (hypertension) Status: Chronic (5) COPD (chronic obstructive pulmonary disease) Status: Acute (6) History of diastolic dysfunction Status: Acute (7) Hyperlipidemia Status: Acute - Assessment and Plan (Free Text) Plan: PT IS STABLE FROM CARDIAC PERSPECTIVE. WILL SIGN OFF. RECONSULT IF NEEDED. THANKS
--- NOTE | 2016-12-27 14:58 | CP.PCM.PN ---
Subjective - Date & Time of Evaluation Date of Evaluation: 12/27/16 Time of Evaluation: 10:00 - Subjective Subjective: PGY3 on heme/onc Dr. Navarro service: Pt seen and examined at bedside this morning. Pt reports breathing better and no other complaints at this point. Objective - Vital Signs/Intake and Output Vital Signs (last 24 hours): Temp Pulse Resp BP Pulse Ox 97.8 F 52 L 18 124/66 100 12/27/16 07:00 12/27/16 07:00 12/27/16 07:00 12/27/16 09:27 12/27/16 07:00 Intake and Output: 12/27/16 12/27/16 06:59 18:59 Output Total 300 Balance -300 - Medications Medications: Current Medications Albuterol/Ipratropium (Duoneb 3 Mg/0.5 Mg (3 Ml) Ud) 3 ml INH RQ6 PRN PRN Reason: Shortness of Breath Last Admin: 12/27/16 13:42 Dose: 3 ml Budesonide (Pulmicort Respules) 0.5 mg INH RQ12 [facility] Last Admin: 12/27/16 07:31 Dose: 0.5 mg Diltiazem HCl (Cardizem Cd) 120 mg PO DAILY [facility] Last Admin: 12/27/16 09:28 Dose: 120 mg Docusate Sodium (Colace) 100 mg PO BID [facility] Last Admin: 12/27/16 09:28 Dose: 100 mg Enoxaparin Sodium (Lovenox) 40 mg SC DAILY [facility] Last Admin: 12/27/16 09:28 Dose: 40 mg Furosemide (Lasix) 40 mg IVP DAILY [facility] Last Admin: 12/27/16 09:27 Dose: 40 mg Glimepiride (Amaryl) 1 mg PO DAILY [facility] Last Admin: 12/27/16 09:28 Dose: 1 mg Cefepime HCl (Maxipime Iv 1 Gm Premix) 1 gm in 50 mls @ 100 mls/hr IVPB Q12H [facility] Last Admin: 12/27/16 06:02 Dose: 100 mls/hr Insulin Aspart (Novolog) 0 unit SC ACHS [facility] PRN Reason: Protocol Last Admin: 12/27/16 11:44 Dose: Not Given Losartan Potassium (Cozaar) 50 mg PO DAILY [facility] Last Admin: 12/27/16 09:28 Dose: 50 mg Montelukast Sodium (Singulair) 10 mg PO HS [facility] Last Admin: 12/26/16 22:09 Dose: 10 mg Pantoprazole Sodium (Protonix Ec Tab) 40 mg PO DAILY [facility] Last Admin: 12/27/16 09:28 Dose: 40 mg Prednisone (Prednisone Tab) 20 mg PO DAILY [facility] Last Admin: 12/27/16 09:28 Dose: 20 mg Rosuvastatin Calcium (Crestor) 5 mg PO [facility] Last Admin: 12/26/16 22:09 Dose: 5 mg Tiotropium [place] (Spiriva) 18 mcg INH RQ24 [facility] Last Admin: 12/27/16 07:31 Dose: 18 mcg - Labs Labs: 12/27/16 07:09 12/27/16 07:09 - Constitutional Appears: Non-toxic, No Acute Distress - Head Exam Head Exam: NORMOCEPHALIC - Eye Exam Pupil Exam: NORMAL ACCOMODATION - Respiratory Exam Respiratory Exam: Rhonchi (bases), NORMAL BREATHING PATTERN - GI/Abdominal Exam GI & Abdominal Exam: Normal Bowel Sounds - Neurological Exam Neurological Exam: Alert, Awake, Oriented x3 - Psychiatric Exam Psychiatric exam: Normal Mood - Skin Skin Exam: Intact Assessment and Plan - Assessment and Plan (Free Text) Assessment: CML Hold Dusatinib. Outpatient follow up. Anemia Mild. No intervention at this point. SOB Management as per Dr. Castillo. Leukocytosis Increased neutrophil. Likely secondary to Solumedrol use.
[2016-12-27 16:10] VITALS: RESP 20
--- NOTE | 2016-12-27 18:24 | CP.PCM.PN ---
<Iker Melgoza - Last Filed: 12/27/16 18:27> Subjective - Date & Time of Evaluation Date of Evaluation: 12/27/16 Time of Evaluation: 18:17 - Subjective Subjective: PGY-[address] Tatum HPI: patient seen and examined at bedside. States he is feeling much better. Complaining of coughing up yellow sputum. States he slept ok. Has some neck stiffness. Besides that no complaints. Should be ready for d/c tomorrow Objective - Vital Signs/Intake and Output Vital Signs (last 24 hours): Temp Pulse Resp BP Pulse Ox 97.9 F 65 20 118/61 97 12/27/16 15:06 12/27/16 15:06 12/27/16 15:06 12/27/16 15:06 12/27/16 15:06 Intake and Output: 12/27/16 12/27/16 06:59 18:59 Intake Total 400 Output Total 300 Balance -300 400 - Medications Medications: Current Medications Albuterol/Ipratropium (Duoneb 3 Mg/0.5 Mg (3 Ml) Ud) 3 ml INH RQ6 PRN PRN Reason: Shortness of Breath Last Admin: 12/27/16 13:42 Dose: 3 ml Budesonide (Pulmicort Respules) 0.5 mg INH RQ12 [facility] Last Admin: 12/27/16 07:31 Dose: 0.5 mg Diltiazem HCl (Cardizem Cd) 120 mg PO DAILY [facility] Last Admin: 12/27/16 09:28 Dose: 120 mg Docusate Sodium (Colace) 100 mg PO BID [facility] Last Admin: 12/27/16 17:04 Dose: 100 mg Enoxaparin Sodium (Lovenox) 40 mg SC DAILY [facility] Last Admin: 12/27/16 09:28 Dose: 40 mg Furosemide (Lasix) 40 mg IVP DAILY [facility] Last Admin: 12/27/16 09:27 Dose: 40 mg Glimepiride (Amaryl) 1 mg PO DAILY [facility] Last Admin: 12/27/16 09:28 Dose: 1 mg Cefepime HCl (Maxipime Iv 1 Gm Premix) 1 gm in 50 mls @ 100 mls/hr IVPB Q12H [facility] Last Admin: 12/27/16 06:02 Dose: 100 mls/hr Insulin Aspart (Novolog) 0 unit SC ACHS [facility] PRN Reason: Protocol Last Admin: 12/27/16 17:04 Dose: 2 unit Losartan Potassium (Cozaar) 50 mg PO DAILY [facility] Last Admin: 12/27/16 09:28 Dose: 50 mg Montelukast Sodium (Singulair) 10 mg PO HS [facility] Last Admin: 12/26/16 22:09 Dose: 10 mg Pantoprazole Sodium (Protonix Ec Tab) 40 mg PO DAILY [facility] Last Admin: 12/27/16 09:28 Dose: 40 mg Prednisone (Prednisone Tab) 20 mg PO DAILY [facility] Last Admin: 12/27/16 09:28 Dose: 20 mg Rosuvastatin Calcium (Crestor) 5 mg PO HS [facility] Last Admin: 12/26/16 22:09 Dose: 5 mg Tiotropium [place] (Spiriva) 18 mcg INH RQ24 [facility] Last Admin: 12/27/16 07:31 Dose: 18 mcg - Labs Labs: 12/27/16 07:09 12/27/16 07:09 Assessment and Plan - Assessment and Plan (Free Text) Assessment: Dyspnea * Likely secondary to severe pulmonary hypertension and bronchiectasis * CXR- 12/24/16- Biapical pleural thickening with upper lobe granulomatous changes. Prominent diffuse increased interstitial lung markings bilaterally. Prominent consolidative changes in the mid to lower lung zones bilateral with reticulation at the level of diaphragms. Suggestion of trace bilateral pleural effusions. Right hilar prominence * CT Chest Abdomen Pelvis: Sm. pericardial effusion, extensive bronchiectasis, b /l pleural effusions, scattered tree/bud-like opacities, 3mm LLL pulm nodule. * Cardio (Nino) * Pulm (Jonathan) - PO prednisone * Lasix 40mg IVP Daily * Duoneb Q6h PRN for dyspnea/wheezing * Spiriva 18mcg INH Q24h * Singulair 10mg PO qHS * Advair 250/50 1 puff INH Q12h * Cefepine 1g IV Q12 * Solumedrol 40mg IV Q12 History of diastolic dysfunction * Cardio (Nino) * ProBNP 1280 * Lasix 40mg IVP Daily * Cozaar 50mg PO Daily * Diltiazem 120mg PO QD Pericardial effusion * Cardio Pily) * Echo: LVEF 74% Grade I abnormal relaxation pattern. Mild to moderate tricuspid regurgitation. Severe Pulmonary hypertension. Small circumferential pericardial effusion. No evidence of cardiac tamponade. Pleural effusion * S/P Thoracentesis October 2016 * CXR: Biapical pleural thickening with upper lobe granulomatous changes. Prominent diffuse increased interstitial lung markings bilaterally. Prominent consolidative changes in the mid to lower lung zones bilateral with reticulation at the level of diaphragms. Suggestion of trace bilateral pleural effusions. Right hilar prominence. * CT: Sm. pericardial effusion, extensive bronchiectasis, b/l pleural effusions , scattered tree/bud-like opacities, 3mm LLL pulm nodule. CML * Heme/onc ([place]) - Hold Dusatinib Diabetes * Continue Glimepiride 1mg PO Daily * RISS ACHS * Accucheck ACHS * Heart Healthy Mod CHO diet HTN * Cozaar 50mg PO Daily Hyperlipidemia * Crestor 5mg PO HS Mass of upper lobe of right lung * CT Chest from 11/11/16 shows right upper lobe nodule * CT: Sm. pericardial effusion, extensive bronchiectasis, b/l pleural effusions , scattered tree/bud-like opacities, 3mm LLL pulm nodule. * Patient will require followup CT Chest in October 2017 Prophylactic measure * Lovenox 40mg SC Daily * Protonix 40mg PO Daily Patient should be ready for D/C tomorrow <Espinoza Tatum - Last Filed: 12/27/16 19:22> Objective - Vital Signs/Intake and Output Vital Signs (last 24 hours): Temp Pulse Resp BP Pulse Ox 97.9 F 65 20 118/61 97 12/27/16 15:06 12/27/16 15:06 12/27/16 15:06 12/27/16 15:06 12/27/16 15:06 Intake and Output: 12/27/16 12/28/16 18:59 06:59 Intake Total 400 Balance 400 - Medications Medications: Current Medications Albuterol/Ipratropium (Duoneb 3 Mg/0.5 Mg (3 Ml) Ud) 3 ml INH RQ6 PRN PRN Reason: Shortness of Breath Last Admin: 12/27/16 13:42 Dose: 3 ml Budesonide (Pulmicort Respules) 0.5 mg INH RQ12 [facility] Last Admin: 12/27/16 07:31 Dose: 0.5 mg Diltiazem HCl (Cardizem Cd) 120 mg PO DAILY [facility] Last Admin: 12/27/16 09:28 Dose: 120 mg Docusate Sodium (Colace) 100 mg PO BID [facility] Last Admin: 12/27/16 17:04 Dose: 100 mg Enoxaparin Sodium (Lovenox) 40 mg SC DAILY [facility] Last Admin: 12/27/16 09:28 Dose: 40 mg Furosemide (Lasix) 40 mg IVP DAILY [facility] Last Admin: 12/27/16 09:27 Dose: 40 mg Glimepiride (Amaryl) 1 mg PO DAILY [facility] Last Admin: 12/27/16 09:28 Dose: 1 mg Cefepime HCl (Maxipime Iv 1 Gm Premix) 1 gm in 50 mls @ 100 mls/hr IVPB Q12H [facility] Last Admin: 12/27/16 06:02 Dose: 100 mls/hr Insulin Aspart (Novolog) 0 unit SC ACHS [facility] PRN Reason: Protocol Last Admin: 12/27/16 17:04 Dose: 2 unit Losartan Potassium (Cozaar) 50 mg PO DAILY [facility] Last Admin: 12/27/16 09:28 Dose: 50 mg Montelukast Sodium (Singulair) 10 mg PO HS [facility] Last Admin: 12/26/16 22:09 Dose: 10 mg Pantoprazole Sodium (Protonix Ec Tab) 40 mg PO DAILY [facility] Last Admin: 12/27/16 09:28 Dose: 40 mg Prednisone (Prednisone Tab) 20 mg PO DAILY [facility] Last Admin: 12/27/16 09:28 Dose: 20 mg Rosuvastatin Calcium (Crestor) 5 mg PO HS [facility] Last Admin: 12/26/16 22:09 Dose: 5 mg Tiotropium [place] (Spiriva) 18 mcg INH RQ24 [facility] Last Admin: 12/27/16 07:31 Dose: 18 mcg - Labs Labs: 12/27/16 07:09 12/27/16 07:09 Attending/Attestation - Attestation I have personally seen and examined this patient.: Yes I have fully participated in the care of the patient.: Yes I have reviewed all pertinent clinical information, including history, physical exam and plan: Yes Notes (Text): 12/27/16 19:20 Patient was seen and examined at 10:15 AM 12/27/16. Exam, assessment and plan were thoroughly gone over with the resident. ROS: Breathing much better with less dyspnea/sob Still with productive cough productive of light yellow material Moving his bowels NO abdominal pain NO N/V NO Chest Pain NO other complaint upon FULL ROS Also on exam: Respiratory: Bilateral Mid to Lower Lung Inspiratory Crackles : NO scrotal swelling/tenderness (this was performed as there was a questionable hydrocele on CT Abdomen/Pelvis) Assessments: Dyspnea likely secondary to Severe Pulmonary HTN and Bronchiectasis: Solumedrol changed to Prednisone 20 mg PO 1x/day Diastolic Dysfunction Right Heart Hx Pericardial Effusion Hx Pleural Effusion Hx CML Hx DM 2 Hx HTN Hx HLD If patient continues to improve, will discharge on morning of 12/28/16. Espinoza Tatum D.O.
[2016-12-28 01:32] VITALS: TEMP 98.2; O2SAT 98
[2016-12-28] MEDS: Cefepime IV 1 gm in Dextrose 1 GM/50 ML BAG IVPB SCH (06:13)
[2016-12-28] MEDS: Tiotropium 18 mcg Cap For Inhalation INH SCH (07:37)
[2016-12-28] MEDS: Budesonide 0.5 mg/2 ml Inhal Susp UD INH SCH (07:37)
[2016-12-28] MEDS: Albuterol-Ipratrop 3 mg / 0.5 (3 ml) UD INH PRN (07:37)
[2016-12-28] MEDS: (Novolog) Insulin Aspart, Recombinant 100 u/ml 10 ml vial SC SCH ×2 (07:41→11:58)
[2016-12-28 08:07] LABS: BASO % 0.1 % (0.0-2.0); EOS # 0.4 K/uL (0.0-0.7); EOS % 3.3 % (0.0-4.0); HEMATOCRIT 38.9 % (35.0-51.0); LYMPH # 2.1 K/uL (1.0-4.3); LYMPH % 16.3 % (20.0-40.0); MEAN CELL VOLUME 91.4 fL (80.0-94.0); MEAN CORPUSCULAR HEMOGLOBIN 30.3 pg (27.0-31.0); MEAN CORPUSCULAR HGB CONC 33.2 g/dL (33.0-37.0); MEAN PLATELET VOLUME 7.6 fL (7.2-11.7); MONO # 1.7 K/uL (0.0-0.8); MONO % 13.4 % (0.0-10.0); NRBC % 0.1 % (0.0-2.0); RED CELL DISTRIBUTION WIDTH 14.7 % (11.5-14.5)
[2016-12-28 08:17] VITALS: BP 122/70; PULSE 64
[2016-12-28 08:40] LABS: ALB/GLOB RATIO 0.9 (1.0-2.1); ALKALINE PHOSPHATASE 56 U/L (38-126); ALT/SGPT 33 U/L (21-72); AST/SGOT 16 U/L (17-59); BILIRUBIN,TOTAL 0.4 mg/dL (0.2-1.3); BLOOD UREA NITROGEN 19 mg/dL (9-20); CALCIUM 9.2 mg/dl (8.6-10.4); CARBON DIOXIDE 37 mmol/L (22-30); CHLORIDE 93 mmol/L (98-107); GFR AFRICAN-AMERICAN > 60; GLUCOSE,RANDOM 105 mg/dL (75-110); POTASSIUM 4.2 mmol/L (3.6-5.2); SODIUM 139 mmol/L (132-148); TOTAL PROTEIN 5.9 g/dL (6.3-8.3)
[2016-12-28] MEDS: diltiaZEM 120 mg/24 Hours CD Cap PO SCH (09:20)
[2016-12-28] MEDS: Pantoprazole 40 mg EC Tab PO SCH (09:21)
[2016-12-28] MEDS: Enoxaparin 40 mg Syringe SC SCH (09:21)
--- NOTE | 2016-12-28 09:42 | CP.PCM.PN ---
Subjective - Date & Time of Evaluation Date of Evaluation: 12/28/16 Time of Evaluation: 09:25 - Subjective Subjective: Patient was seen and examined at 9:25 AM 12/28/16. ROS: Breathing much better with less dyspnea/sob Still with productive cough productive of light yellow material Moving his bowels NO abdominal pain NO N/V NO Chest Pain NO other complaint upon FULL ROS Exam is unremarkable except for: Respiratory: Bilateral Mid to Lower Lung Inspiratory Crackles Assessments: Dyspnea likely secondary to Severe Pulmonary HTN and Bronchiectasis: Solumedrol changed to Prednisone 20 mg PO 1x/day Diastolic Dysfunction Right Heart Hx Pericardial Effusion Hx Pleural Effusion Hx CML Hx DM 2 Hx HTN Hx HLD I spoke with Director Game Dr. Castillo this morning and patient is stable for discharge from Pulmonology standpoint. Cardiology already signed off on patient. He is medically stable for discharge. The following instructions will be included by the resident in the discharge summary and will be provided to patient upon discharge: 1). Please case picker the following prescriptions from your pharmacy [facility] located on [address] [place] [address] and take as directed: Pulmicort 180 mcg/actuation, 2 inhalations by mouth every 12 hours, Disp #1, NO refills Albuterol 90 mcg/actuation, 2 inhalation by mouth every 6 hours ONLY NEEDED for shortness of breath/wheezing Prednisone 5 m tablets by mouth on 12/29/16, 4 tablets by mouth on 12/30/16, 3 tablets by mouth on 12/31/16, 2 tablets by mouth on 01/01/17, 1 tablet by mouth on 01/02/17, Disp #15, NO refills Simvastatin 20 mg, 1 tablet by mouth with dinner, Disp #30, NO refills Ciprofloxacin 500 mg, 1 tablet by mouth with breakfast and 1 tablet by mouth with dinner, Disp #14, NO refills Spiriva 18mcg, 1 inhalation by mouth 1x/day in the morning, Disp #30, NO refills Singulair 10 mg, 1 tablet by mouth 1x/day in the evening, Disp #30, NO refills Glimepiride 1 mg, 1 tablet by mouth 1x/day with breakfast, Disp #30, NO refills Cardizem 120 mg, 1 tablet by mouth 1x/day with breakfast, Disp #30, NO refills Cozaar 50 mg, 1 tablet by mouth 1x/day with dinner, Disp #30, NO refills 2). Please schedule follow up with Lung Physician Dr. Castillo to take place in 7 days by calling his office at [phone]. 3). Please schedule follow up with your Primary Care Physician Dr. Cole to take place in 7 days. 4). Please schedule follow up with your Heart Physician Dr. Yvette Oneill to take place in the next 7 to 10 days. 5). Please schedule follow up with your Actionscript Developer/Oncologist Dr. Rei Navarro take place in the next 7 to 10 days. 6). Please take care and be well and get to the movie theater. Espinoza Tatum D.O. Objective - Vital Signs/Intake and Output Vital Signs (last 24 hours): Temp Pulse Resp BP Pulse Ox 98.2 F 64 20 122/70 98 12/28/16 07:00 12/28/16 07:00 12/28/16 07:00 12/28/16 09:20 12/28/16 07:00 Intake and Output: 12/28/16 12/28/16 06:59 18:59 Intake Total 300 Output Total 700 Balance -400 - Medications Medications: Current Medications Albuterol/Ipratropium (Duoneb 3 Mg/0.5 Mg (3 Ml) Ud) 3 ml INH RQ6 PRN PRN Reason: Shortness of Breath Last Admin: 12/28/16 07:37 Dose: 3 ml Budesonide (Pulmicort Respules) 0.5 mg INH RQ12 [facility] Last Admin: 12/28/16 07:37 Dose: 0.5 mg Diltiazem HCl (Cardizem Cd) 120 mg PO DAILY [facility] Last Admin: 12/28/16 09:20 Dose: 120 mg Docusate Sodium (Colace) 100 mg PO BID [facility] Last Admin: 12/28/16 09:20 Dose: 100 mg Enoxaparin Sodium (Lovenox) 40 mg SC DAILY [facility] Last Admin: 12/28/16 09:21 Dose: 40 mg Furosemide (Lasix) 40 mg IVP DAILY [facility] Last Admin: 12/28/16 09:20 Dose: 40 mg Glimepiride (Amaryl) 1 mg PO DAILY [facility] Last Admin: 12/28/16 09:20 Dose: 1 mg Cefepime HCl (Maxipime Iv 1 Gm Premix) 1 gm in 50 mls @ 100 mls/hr IVPB Q12H [facility] Last Admin: 12/28/16 06:13 Dose: 100 mls/hr Insulin Aspart (Novolog) 0 unit SC ACHS [facility] PRN Reason: Protocol Last Admin: 12/28/16 07:41 Dose: Not Given Losartan Potassium (Cozaar) 50 mg PO DAILY [facility] Last Admin: 12/28/16 09:20 Dose: 50 mg Montelukast Sodium (Singulair) 10 mg PO HS [facility] Last Admin: 12/27/16 22:51 Dose: 10 mg Pantoprazole Sodium (Protonix Ec Tab) 40 mg PO DAILY [facility] Last Admin: 12/28/16 09:21 Dose: 40 mg Prednisone (Prednisone Tab) 20 mg PO DAILY [facility] Last Admin: 12/28/16 09:21 Dose: 20 mg Rosuvastatin Calcium (Crestor) 5 mg PO HS [facility] Last Admin: 12/27/16 22:51 Dose: 5 mg Tiotropium [place] (Spiriva) 18 mcg INH RQ24 [facility] Last Admin: 12/28/16 07:37 Dose: 18 mcg - Labs Labs: 12/28/16 07:56 12/28/16 07:56
--- NOTE | 2016-12-28 10:36 | CP.PCM.DIS ---
Provider - Provider Date of Admission: 12/26/16 08:57 Attending physician: Espinoza Tatum MD Primary care physician: PMD: Dr. Cole Consults: Pulmonary: Dr. Castillo Cardiology: Dr. Oneill Heme/onc: Dr. Navarro Time Spent in preparation of Discharge (in minutes): 40 Diagnosis - Discharge Diagnosis (1) Pulmonary hypertension Status: Resolved (2) Bronchiectasis Status: Resolved (3) Pericardial effusion Status: Resolved (4) Pleural effusion Status: Resolved (5) Right heart failure due to pulmonary hypertension Status: Chronic (6) CML (chronic myelocytic leukemia) Status: Chronic (7) Diabetes Status: Chronic (8) HTN (hypertension) Status: Chronic (9) Hyperlipidemia Status: Chronic Hospital Course - Lab Results Lab Results: Most Recent Lab Values WBC 13.0 K/uL (4.8-10.8) H 12/28/16 07:56 RBC 4.26 Mil/uL (4.40-5.90) L 12/28/16 07:56 Hgb 12.9 g/dL (12.0-18.0) 12/28/16 07:56 Hct 38.9 % (35.0-51.0) 12/28/16 07:56 MCV 91.4 fL (80.0-94.0) 12/28/16 07:56 MCH 30.3 pg (27.0-31.0) 12/28/16 07:56 MCHC 33.2 g/dL (33.0-37.0) 12/28/16 07:56 RDW 14.7 % (11.5-14.5) H 12/28/16 07:56 Plt Count 258 K/uL (130-400) 12/28/16 07:56 MPV 7.6 fL (7.2-11.7) 12/28/16 07:56 Neut % (Auto) 66.9 % (50.0-75.0) 12/28/16 07:56 Lymph % (Auto) 16.3 % (20.0-40.0) L 12/28/16 07:56 [place] % (Auto) 13.4 % (0.0-10.0) H 12/28/16 07:56 Eos % (Auto) 3.3 % (0.0-4.0) 12/28/16 07:56 Baso % (Auto) 0.1 % (0.0-2.0) 12/28/16 07:56 Neut # 8.7 K/uL (1.8-7.0) H 12/28/16 07:56 Lymph # 2.1 K/uL (1.0-4.3) 12/28/16 07:56 [place] # 1.7 K/uL (0.0-0.8) H 12/28/16 07:56 Eos # 0.4 K/uL (0.0-0.7) 12/28/16 07:56 Baso # 0.0 K/uL (0.0-0.2) 12/28/16 07:56 Neutrophils % (Manual) 72 % (50-75) 12/27/16 07:09 Band Neutrophils % 2 % (0-2) 12/27/16 07:09 Lymphocytes % (Manual) 11 % (20-40) L 12/27/16 07:09 Monocytes % (Manual) 15 % (0-10) H 12/27/16 07:09 Platelet Estimate Normal (NORMAL) 12/27/16 07:09 RBC Morphology Normal 12/27/16 07:09 Puncture Site L rad 12/24/16 03:57 pCO2 38 mm/Hg (35-45) 12/24/16 03:57 pO2 110 mm/Hg (80-100) H 12/24/16 03:57 HCO3 26.3 mmol/L (21-28) 12/24/16 03:57 ABG pH 7.44 (7.35-7.45) 12/24/16 03:57 ABG Total CO2 27.0 mmol/L (22-28) 12/24/16 03:57 ABG O2 Saturation 98.8 % (95-98) H 12/24/16 03:57 ABG Base Excess 1.7 mmol/L (-2.0-3.0) 12/24/16 03:57 Vik Test Pos 12/24/16 03:57 ABG Potassium 4.0 mmol/L (3.6-5.2) 12/24/16 03:57 Sodium 132.0 mmol/l (132-148) 12/24/16 03:57 Chloride 101.0 mmol/L (98-107) 12/24/16 03:57 Glucose 143 mg/dl (75-110) H 12/24/16 03:57 Lactate 0.7 mmol/L (0.7-2.1) 12/24/16 03:57 Liter Flow 5.0 12/24/16 03:57 Sodium 139 mmol/L (132-148) 12/28/16 07:56 Potassium 4.2 mmol/L (3.6-5.2) 12/28/16 07:56 Chloride 93 mmol/L (98-107) L 12/28/16 07:56 Carbon Dioxide 37 mmol/L (22-30) H 12/28/16 07:56 Anion Gap 13 (10-20) 12/28/16 07:56 BUN 19 mg/dL (9-20) 12/28/16 07:56 Creatinine 0.8 MG/DL (0.8-1.5) 12/28/16 07:56 Est GFR ( Amer) > 60 12/28/16 07:56 Est GFR (Non-Af Amer) > 60 12/28/16 07:56 POC Glucose (mg/dL) 94 mg/dL (65-110) 12/28/16 06:16 Random Glucose 105 mg/dL (75-110) 12/28/16 07:56 Calcium 9.2 mg/dl (8.6-10.4) 12/28/16 07:56 Total Bilirubin 0.4 mg/dL (0.2-1.3) 12/28/16 07:56 AST 16 U/L (17-59) L 12/28/16 07:56 ALT 33 U/L (21-72) 12/28/16 07:56 Alkaline Phosphatase 56 U/L (38-126) 12/28/16 07:56 Troponin I < 0.0120 ng/mL (0.00-0.120) 12/24/16 03:50 NT-Pro-B Natriuret Pep 1280 pg/mL (0-900) H 12/24/16 03:50 Total Protein 5.9 g/dL (6.3-8.3) L 12/28/16 07:56 Albumin 2.8 g/dL (3.5-5.0) L 12/28/16 07:56 Globulin 3.0 gm/dL (2.2-3.9) 12/28/16 07:56 Albumin/Globulin Ratio 0.9 (1.0-2.1) L 12/28/16 07:56 Arterial Blood Potassium 4.0 mmol/L (3.6-5.2) 12/24/16 03:57 Urine Color Yellow (YELLOW) 12/24/16 03:36 Urine Clarity Clear (Clear) 12/24/16 03:36 Urine pH 6.0 (5.0-8.0) 12/24/16 03:36 Ur Specific [place] 1.010 (1.003-1.030) 12/24/16 03:36 Urine Protein Negative mg/dL (NEGATIVE) 12/24/16 03:36 Urine Glucose (UA) Normal mg/dL (Normal) 12/24/16 03:36 Urine Ketones Negative mg/dL (NEGATIVE) 12/24/16 03:36 Urine Blood Negative (NEGATIVE) 12/24/16 03:36 Urine Nitrate Negative (NEGATIVE) 12/24/16 03:36 Urine Bilirubin Negative (NEGATIVE) 12/24/16 03:36 Urine Urobilinogen 4.0 mg/dL (0.2-1.0) 12/24/16 03:36 Ur Leukocyte Esterase Neg [place]/uL (Negative) 12/24/16 03:36 Urine WBC (Auto) 1 /hpf (0-5) 12/24/16 03:36 Urine RBC (Auto) < 1 /hpf (0-3) 12/24/16 03:36 - Hospital Course Hospital Course: Patient is a 71 year old male with PMHx of hypertension, NIDDM, hyperlipidemia , severe pulmonary hypertension, right sided heart failure, hx of pericardial effusion, hx of pleural effusions, CML, COPD, presenting to the hospital complaining of shortness of breath. Patient reports that he started feeling short of breath on evening. He said he was tossing and turning because he was unable to get comfortable due to the shortness of breath. He states that the dyspnea got progressively worse until yesterday, when he came in. He says that at baseline, he is unable to lay down flat and unable to walk more than 2 blocks without get short of breath. He says he has had a productive cough with sputum of various colors, for the past 1.5 weeks. He denies any fevers, chills, chest pain, palpitations. Patient was recently admitted to [facility] [place] on for dyspnea, secondary to COPD vs CHF exacerbation. During patient's hospital course, patient received Duoneb, Spiriva, Singular Advair, solu-medrol IV with oral prednisone taper. Specialty service including pulmonary, cardiology , and heme/onc were consulted to manage patient's condition (please refer to medical records to for complete detail). Patient pulmonary function improved clinically. Above is a brief summary of the patient's hospital course throughout this admission. Please see medical record for full report. patient with a printed copy of the following instructions: 1). Please seed cone picker the following prescriptions from your pharmacy [facility] located on [address] [place] [address] and take as directed: Pulmicort 180 mcg/actuation, 2 inhalations by mouth every 12 hours, Disp #1, NO refills Albuterol 90 mcg/actuation, 2 inhalation by mouth every 6 hours ONLY NEEDED for shortness of breath/wheezing Prednisone 5 m tablets by mouth on 12/29/16, 4 tablets by mouth on 12/30/16, 3 tablets by mouth on 12/31/16, 2 tablets by mouth on 01/01/17, 1 tablet by mouth on 01/02/17, Disp #15, NO refills Simvastatin 20 mg, 1 tablet by mouth with dinner, Disp #30, NO refills Ciprofloxacin 500 mg, 1 tablet by mouth with breakfast and 1 tablet by mouth with dinner, Disp #14, NO refills Spiriva 18mcg, 1 inhalation by mouth 1x/day in the morning, Disp #30, NO refills Singulair 10 mg, 1 tablet by mouth 1x/day in the evening, Disp #30, NO refills Glimepiride 1 mg, 1 tablet by mouth 1x/day with breakfast, Disp #30, NO refills Cardizem 120 mg, 1 tablet by mouth 1x/day with breakfast, Disp #30, NO refills Cozaar 50 mg, 1 tablet by mouth 1x/day with dinner, Disp #30, NO refills 2). Please schedule follow up with Lung Physician Dr. Castillo to take place in 7 days by calling his office at [phone]. 3). Please schedule follow up with your Primary Care Physician Dr. Cole to take place in 7 days. 4). Please schedule follow up with your Heart Physician Dr. Yvette Oneill to take place in the next 7 to 10 days. 5). Please schedule follow up with your Electronic Masking System Operator/Oncologist Dr. Rei Navarro take place in the next 7 to 10 days. 6). Please take care and be well and get to the movie theater. Plan was discussed in detail with the patient, who accepts and agrees. - Date & Time of H&P Date of H&P: 12/24/16 Time of H&P: 08:11 Discharge Exam - Head Exam Head Exam: NORMOCEPHALIC - Eye Exam Eye Exam: Normal appearance - ENT Exam ENT Exam: Mucous Membranes Moist - Neck Exam Neck exam: Normal Inspection - Respiratory Exam Respiratory Exam: NORMAL BREATHING PATTERN Additional comments: Bilateral Mid to Lower Lung Inspiratory Crackles - Cardiovascular Exam Cardiovascular Exam: REGULAR RHYTHM, +S1, +S2 - GI/Abdominal Exam GI & Abdominal Exam: Normal Bowel Sounds, Soft. absent: Tenderness - Extremities Exam Extremities exam: pedal pulses present - Neurological Exam Neurological exam: Alert, Oriented x3 - Psychiatric Exam Psychiatric exam: Normal Affect, Normal Mood - Skin Skin Exam: Normal Color, Warm Discharge Plan - Discharge Medications Prescriptions: Albuterol HFA [Ventolin HFA 90 mcg/actuation (8 g)] 2 puff IH Q6H PRN #1 puff PRN Reason: Shortness Of Breath Budesonide [Pulmicort Flexhaler] 360 mcg IH Q12H #1 aer.pow.ba Ciprofloxacin [Cipro] 500 mg PO Q12H #14 tab [id number] CD [Cardizem CD] 120 mg PO DAILY #30 cap Glimepiride [Amaryl] 1 mg PO DAILY #30 tab Losartan [Cozaar] 50 mg PO DAILY #30 tab Montelukast [Singulair] 10 mg PO HS #30 tab Prednisone 5 mg PO DAILY #15 tab Simvastatin 20 mg PO DAILY #30 Simvastatin 20 mg PO DAILY #30 tablet Tiotropium [Spiriva] 18 mcg INH RQ24 #1 cap - Follow Up Plan Condition: FAIR Disposition: HOME/ ROUTINE Instructions: Heart Failure (DC), Heart Failure (GEN), Pacemaker (DC), Pacemaker (GEN), Pulmonary Edema (DC), Pulmonary Edema (GEN), COPD (Chronic Obstructive Pulmonary Disease) (DC), Ascites (DC), Ascites (GEN), Dyspnea (GEN) , Hypertension (DC), Hypertension (GEN), Bone Marrow Harvesting (DC) Referrals: Milton Castillo MD [Staff Provider] - Victorino Oneill MD [Staff Provider] - Clinical Quality Measures - CQM - Heart Failure Ejection Fraction: 40 % or Greater Angiotensin II Receptor Willy Prescribed: Yes - Date & Time of Discharge Summary Date of Discharge Summary: 12/28/16
--- NOTE | 2016-12-31 07:25 | PCM.HF ---
Heart Failure Core Measure - Heart Failure Ejection Fraction: 40 % or Greater (last echo 11/07/16) MORE Inhibitor Prescribed: No Contraindication/Reason for not providing: pt is on losartan Beta-Willy Prescribed: None Contraindication/Reason for not providing: pt is on cardizem Angiotensin II Receptor Willy Prescribed: Yes AnticoagulationTherapy for Atrial Fibrillation/Atrialflutter: No Contraindication/Reason for not providing: not indicated Aldosterone Antagonist Prescribed: No Contraindication/Reason for not providing: no indicated Hydralazine Nitrate Prescribed: No Contraindication/Reason for not providing: not indicated Implantable Cardioverter Defibrillator Therapy: No Contraindication/Reason for not providing: not indicated Cardiac Resynchronization Therapy Prescribed: No Contraindication/Reason for not providing: not indicated - Follow up Will be discharged to: Home Follow Up Date (must be within 7 days from discharge): 01/03/17 Follow Up Time: 09:00
== END 2016-12-28 13:06 | disposition home or self-care (01) | DRG 315 ==
LOC: C.ER 03:29 → C.6T 06:02 → OBSVTOIN 12-26 08:57 → C.6T 12-27 22:09
PROVIDERS: ADMIT Family Medicine; ATTEND Family Medicine
DX: I27.2 Other secondary pulmonary hypertension (principal); C92.10 Chronic myeloid leukemia, BCR/ABL-positive, not having achieved remission; I31.3 Pericardial effusion (noninflammatory); I11.0 Hypertensive heart disease with heart failure; I50.32 Chronic diastolic (congestive) heart failure; E11.9 Type 2 diabetes mellitus without complications; D64.9 Anemia, unspecified; J47.0 Bronchiectasis with acute lower respiratory infection; J47.9 Bronchiectasis, uncomplicated; R91.1 Solitary pulmonary nodule; E78.5 Hyperlipidemia, unspecified; Z79.84 Long term (current) use of oral hypoglycemic drugs; Z87.891 Personal history of nicotine dependence; Z82.3 Family history of stroke